=== PATIENT | male | born 1950 | race Caucasian/White ===

== ENCOUNTER 2018-03-29 11:29 | Inpatient (IN) | payer MEDICARE, OTHER ==
[~2018-03-29] VITALS: Ht 177.8 cm; Wt 81.6 kg
[~2018-03-29 11:29] MED LIST: ACHD5005 PO; ASP325T PO; CEFU250T11 PO; CEPH500C PO; CLIN-62 PO; HYDR-3720 PO; NAPR220C11 PO
--- OUTSIDE RECORDS SUMMARY | 2018-03-29 11:35 | XMS REPORT | Continuity of Care Document ---
Author Author [facility] of [facility] of [facility] Address Unknown Phone Unavailable Allergies Active Description Code Type Severity Reaction Onset Reported/Identified Relationship to Patient Clinical Status Yes No Known Drug Allergies [id number] Drug Allergy Unknown N/A 11/18/2011 Yes codeine Drug Allergy N/A N/A 01/29/2014 Medications There is no data. Problems Date Dx Coded Attending Type Code Diagnosis Diagnosed By 11/25/2011 Ot V58.32 01/29/2014 FARSHAD MONACO MD 682.1 CELLULITIS AND ABSCESS OF NECK 02/01/2014 DANICA DALE, JODI Jones Ot 038.9 02/01/2014 DANICA DALE, JODI Jones Ot 305.00 02/01/2014 DANICA DALE, JODI Jones Ot 478.29 02/01/2014 DANICA DALE, JODI Jones Ot 527.3 02/01/2014 DANICA DALE, JODI Jones Ot 787.20 02/01/2014 DANICA DALE, JODI Karen Ot 995.91 02/27/2014 LOWE DDS, SHAHRZAD Ot 527.2 03/19/2014 LOWE DDS, SHAHRZAD Ot 527.2 03/19/2014 LOWE DDS, SHAHRZAD Ot V72.84 03/19/2014 LOWE DDS, SHAHRZAD Ot 527.2 03/19/2014 LOWE DDS, SHAHRZAD Ot V72.84 Procedures There is no data. Results There is no data. Encounters ACCT No. Visit Date/Time Discharge Status Pt. Type Provider Facility Loc./Unit Complaint [id number] 01/29/2014 14:01:00 01/29/2014 23:59:59 CLS Outpatient FARSHAD MONACO MD [id number] 02/27/2014 11:58:00 02/27/2014 18:30:00 DIS Outpatient SHAHRZAD BARBOSA DDS Via [facility] [id number] 02/20/2014 13:57:00 02/20/2014 23:59:59 CLS Outpatient SHAHRZAD BARBOSA DDS Via [facility] PREOP [id number] 01/29/2014 15:04:00 02/01/2014 13:50:00 DIS Inpatient DANICA DALE, JODI Jones Via [facility] SURGICAL [id number] 11/25/2011 14:16:00 Document Registration
[2018-03-29 11:55] LABS: BASOPHILS # (AUTO) 0.1 10^3/uL (0.0-0.1); BASOPHILS % (AUTO) 1 % (0-10); EOSINOPHILS # (AUTO) 0.2 10^3/uL (0.0-0.3); EOSINOPHILS % (AUTO) 2 % (0-10); HEMATOCRIT 44 % (40-54); LYMPHOCYTES # (AUTO) 1.8 X 10^3 (1.0-4.0); LYMPHOCYTES % (AUTO) 19 % (12-44); MEAN CORPUSCULAR HEMOGLOBIN 32 PG (25-34); MEAN CORPUSCULAR HGB CONC 34 G/DL (32-36); MEAN CORPUSCULAR VOLUME 93 FL (80-99); MEAN PLATELET VOLUME 10.1 FL (7.4-10.4); MONOCYTES # (AUTO) 1.2 X 10^3 (0.0-1.0); MONOCYTES % (AUTO) 13 % (0-12); NEUTROPHILS # (AUTO) 6.2 X 10^3 (1.8-7.8); NEUTROPHILS % (AUTO) 66 % (42-75); PLATELET COUNT 332 10^3/uL (130-400); RED BLOOD COUNT 4.67 10^6/uL (4.35-5.85); RED CELL DISTRIBUTION WIDTH 13.8 % (10.0-14.5); WHITE BLOOD COUNT 9.5 10^3/uL (4.3-11.0)
[2018-03-29 12:36] LABS: ALANINE AMINOTRANSFERASE 23 U/L (0-55); ALBUMIN 3.7 GM/DL (3.2-4.5); ALKALINE PHOSPHATASE 66 U/L (40-136); BILIRUBIN,TOTAL 0.5 MG/DL (0.1-1.0); BUN/CREATININE RATIO 18; CALCIUM 9.8 MG/DL (8.5-10.1); CARBON DIOXIDE 22 MMOL/L (21-32); CHLORIDE 106 MMOL/L (98-107); CREATININE SERUM 0.96 MG/DL (0.60-1.30); GFR ESTIMATED > 60; GLUCOSE 94 MG/DL (70-105); POTASSIUM 4.4 MMOL/L (3.6-5.0); SODIUM 140 MMOL/L (135-145); TOTAL PROTEIN 7.8 GM/DL (6.4-8.2)
[2018-03-29 12:57] LABS: TSH (THYROID ANALYZER) 0.93 UIU/ML (0.35-4.94)
--- NOTE | 2018-03-29 13:03 | Diagnostic Imaging Report ---
INDICATION: Altered mental status. FINDINGS: Portable chest. There is mild interstitial lung disease bilaterally more prominent in the lung bases. There are no consolidated infiltrates. The heart is not enlarged. There is definite fullness of the superior mediastinum. This may be vascular or nonvascular in nature. No definite hilar lymph nodes are seen. No pneumothorax or pleural effusion. No bony abnormalities. IMPRESSION: 1. There is considerable fullness of the mediastinum. Would consider CT scan of the chest to further evaluate. 2. Bilateral interstitial lung disease which may be acute or chronic. The heart is not large. Dictated by: Dictated on workstation # [id number]
[2018-03-29 13:08] LABS: BILIRUBIN,URINE NEGATIVE (NEGATIVE); CLARITY,URINE CLEAR; COLOR,URINE YELLOW; GLUCOSE, URINE (UA) NEGATIVE (NEGATIVE); KETONES,URINE 1+ (NEGATIVE); LEUKOCYTE ESTERASE ,URINE 1+ (NEGATIVE); NITRITE,URINE NEGATIVE (NEGATIVE); PH,URINE 5 (5-9); PROTEIN,URINE 1+ (NEGATIVE); UROBILINOGEN,URINE 1 MG/DL (NORMAL)
[2018-03-29 13:15] LABS: BACTERIA,URINE NEGATIVE /HPF; WBC,URINE RARE /HPF
[2018-03-29] MEDS ORDERED: NICOTINE 21 MG (NICODERM) PATCH TD ONE (14:30)
[2018-03-29] MEDS ORDERED: DEXAMETHASONE 10 MG/ML (DECADRON) 1 ML VIAL IV ONE (14:30)
--- NOTE | 2018-03-29 14:41 | ED General ---
General Chief Complaint: Neurological Problems Stated Complaint: WEAKNESS;AMS Nursing Triage Note: THE PT ARRIVAL BY EMS. NO DISTRESS OR VISIBLE SX OF INJURY ARE REPORTED. LOC IS NORMAL FOR THE PT WITH A HX OF DEMENTIA. Nursing Sepsis Screen: No Definite Risk Source of Information: Patient, EMS, Family Exam Limitations: Physical Impairments History of Present Illness Date Seen by Provider: Mar 29, 2018 Time Seen by Provider: 11:45 Initial Comments Patient presents by EMS with concerns about progressive weakness and frequent falls. He is also had confusion. He has been living with his frail older sister who has been caring for him for the past few weeks. She presumed that he had progressive dementia. Patient's condition has progressed to the point that sister can no longer care for him. He has not seen a doctor since he received a health screening for placement in the [facility] a year ago. He has no primary care provider. Allergies and Home Medications Allergies Coded Allergies: No Known Drug Allergies (Unverified , 11/18/11) Home Medications No Active Prescriptions or Reported Meds Patient Home Medication List Home Medication List Reviewed: Yes Review of Systems Review of Systems Constitutional: see HPI EENTM: no symptoms reported Respiratory: no symptoms reported Cardiovascular: no symptoms reported Genitourinary: no symptoms reported Musculoskeletal: see HPI, other (Right elbow pain) Skin: see HPI, other (Skin tear on right elbow) Psychiatric/Neurological: See HPI Hematologic/Lymphatic: No Symptoms Reported Immunological/Allergic: no symptoms reported Past Usvugdb-Vkloqz-Yvzfrc Hx Past Med/Social Hx: Reviewed and Corrections made Patient Social History Recent Foreign Travel: No Contact w/Someone Who Travel: No Recent Infectious Disease Expo: No Physical Abuse: No Sexual Abuse: No Mistreated: No Fear: No Past Medical History Surgeries: Yes (incision and drainage of submandibular abscess) Respiratory: No Cardiac: No Neurological: No Reproductive Disorders: No Gastrointestinal: No Musculoskeletal: No Endocrine: No HEENT: No Cancer: No Did You Recieve Any Treatments: No Psychosocial: Yes (history of alcoholism and went through rehabilitation 2017) Adverse Reaction/Blood Tranf: No Family Medical History Patient reports no known family medical history. Physical Exam Vital Signs Vital Signs - First Documented 03/29/18 03/29/18 03/29/18 11:48 15:22 15:30 Temp 96.2 Pulse 87 Resp 18 B/P (MAP) 112/83 (93) Pulse Ox 99 O2 Delivery Room Air Capillary Refill : Less Than 3 Seconds Height, Weight, BMI Height: 5'10.00" Weight: 180lbs. oz. 81.165215zn; BMI Method:Estimated General Appearance: No Apparent Distress, WD/WN HEENT: PERRL/EOMI, Normal ENT Inspection, Pharynx Normal Neck: Normal Inspection Respiratory: Lungs Clear, Normal Breath Sounds, No Accessory Muscle Use, No Respiratory Distress Cardiovascular: Regular Rate, Rhythm, No Edema, No Murmur Gastrointestinal: Non Tender, Soft Extremity: Other (abrasion and tenderness to the right elbow over the olecranon ) Neurologic/Psychiatric: Alert, No Motor/Sensory Deficits, executive account manager II-XII Norm as Tested, Other (confused with no focal motor deficits) Skin: Normal Color, Warm/Dry, Other (minor skin tear on the right elbow) Progress/Results/Core Measures Suspected Sepsis Recent Fever Within 48 Hours: No Infection Criteria Present: None New/Unexplained Altered Menta: No Sepsis Screen: No Definite Risk SIRS Temperature:96.2 Pulse: 87 Respiratory Rate: 18 Laboratory Tests 03/29/18 11:35: White Blood Count 9.5 Blood Pressure 112 /83 Mean: 93 Laboratory Tests 03/29/18 11:35: Platelet Count 332 03/29/18 12:09: Creatinine 0.96, Total Bilirubin 0.5 Results/Orders Lab Results Laboratory Tests Test 03/29/18 11:35 03/29/18 12:09 03/29/18 13:00 Range/Units White Blood Count 9.5 4.3-11.0 10^3/uL Red Blood Count 4.67 4.35-5.85 10^6/uL Hemoglobin 15.0 13.3-17.7 G/DL Hematocrit 44 40-54 % Mean Corpuscular Volume 93 80-99 FL Mean Corpuscular Hemoglobin 32 25-34 PG Mean Corpuscular Hemoglobin Concent 34 32-36 G/DL Red Cell Distribution Width 13.8 10.0-14.5 % Platelet Count 332 130-400 10^3/uL Mean Platelet Volume 10.1 7.4-10.4 FL Neutrophils (%) (Auto) 66 42-75 % Lymphocytes (%) (Auto) 19 12-44 % Monocytes (%) (Auto) 13 H 0-12 % Eosinophils (%) (Auto) 2 0-10 % Basophils (%) (Auto) 1 0-10 % Neutrophils # (Auto) 6.2 1.8-7.8 X 10^3 Lymphocytes # (Auto) 1.8 1.0-4.0 X 10^3 Monocytes # (Auto) 1.2 H 0.0-1.0 X 10^3 Eosinophils # (Auto) 0.2 0.0-0.3 10^3/uL Basophils # (Auto) 0.1 0.0-0.1 10^3/uL Sodium Level 140 135-145 MMOL/L Potassium Level 4.4 3.6-5.0 MMOL/L Chloride Level 106 98-107 MMOL/L Carbon Dioxide Level 22 21-32 MMOL/L Anion Gap 12 5-14 MMOL/L Blood Urea Nitrogen 17 7-18 MG/DL Creatinine 0.96 0.60-1.30 MG/DL Estimat Glomerular Filtration Rate > 60 BUN/Creatinine Ratio 18 Glucose Level 94 70-105 MG/DL Calcium Level 9.8 8.5-10.1 MG/DL Corrected Calcium 10.0 8.5-10.1 MG/DL Total Bilirubin 0.5 0.1-1.0 MG/DL Aspartate Amino Transf (AST/SGOT) 32 5-34 U/L Alanine Aminotransferase (ALT/SGPT) 23 0-55 U/L Alkaline Phosphatase 66 40-136 U/L Total Protein 7.8 6.4-8.2 GM/DL Albumin 3.7 3.2-4.5 GM/DL TSH [place] Testing 0.93 0.35-4.94 UIU/ML Urine Color YELLOW Urine Clarity CLEAR Urine pH 5 5-9 Urine Specific [place] 1.020 1.016-1.022 Urine Protein 1+ H NEGATIVE Urine Glucose (UA) NEGATIVE NEGATIVE Urine Ketones 1+ H NEGATIVE Urine Nitrite NEGATIVE NEGATIVE Urine Bilirubin NEGATIVE NEGATIVE Urine Urobilinogen 1 NORMAL MG/DL Urine Leukocyte Esterase 1+ H NEGATIVE Urine RBC (Auto) 3+ H NEGATIVE Urine RBC 2-5 H /HPF Urine WBC RARE /HPF Urine Squamous Epithelial Cells NONE /HPF Urine Crystals NONE /LPF Urine Bacteria NEGATIVE /HPF Urine Casts NONE /LPF Urine Mucus NEGATIVE /LPF Urine Culture Indicated NO My Orders Orders - OMAR DORMAN MD Cbc With Automated Diff (03/29/18 11:48) Comprehensive Metabolic Panel (03/29/18 11:48) Ua Culture If Indicated (03/29/18 11:48) Saline Lock/Iv-Start (03/29/18 11:48) Chest 1 View, Ap/Pa Only (03/29/18 11:48) Thyroid Analyzer (03/29/18 11:48) Ct Head Wo (03/29/18 11:52) Elbow, Right, 3 Views (03/29/18 11:52) Dexamethasone Injection (Decadron Inject (03/29/18 14:30) Nicotine Patch (Nicoderm Patch) (03/29/18 14:30) Medications Given in ED Current Medications Medications Dose Ordered Sig/Chandler Route Start Time Stop Time Status Last Admin Dose Admin Dexamethasone Sodium Phosphate 10 mg ONCE ONCE IV 03/29/18 14:30 03/29/18 14:31 DC 03/29/18 14:37 10 MG Nicotine 21 mg ONCE ONCE TD 03/29/18 14:30 03/29/18 14:31 DC 03/29/18 14:36 21 MG Vital Signs/I&O 03/29/18 03/29/18 03/29/18 03/29/18 11:48 15:22 15:30 15:45 Temp 96.2 96.2 97.2 Pulse 87 87 70 Resp 18 18 20 B/P (MAP) 112/83 (93) 112/83 (93) 125/82 (96) Pulse Ox 99 93 93 O2 Delivery Room Air Room Air Capillary Refill : Less Than 3 Seconds Blood Pressure Mean: 93 Progress Note : Progress Note Lab workup was fairly benign. CT of the head demonstrated numerous lesions and chest x-ray showed a widened mediastinum. These imaging findings suggest metastatic cancer. There was some edema noted on the CT of the head. Dexamethasone will be given to prevent worsening of edema. Patient was admitted to Dr. Perez with consultation with Dr. Miller and Dr. Whitfield. CT of the chest, abdomen, and pelvis with contrast was placed on the bridging orders. I discussed the findings with patient and his sister including my concern for neoplastic disease. Diagnostic Imaging Diagonstic Imaging: Xray Plain Films/CT/US/NM/MRI: chest Comments Chest x-ray viewed by me and report reviewed. See report below: NAME: JESSICA DONOVAN [employer] REC#: [id number] PT STATUS: REG ER : 1950 PHYSICIAN: OMAR DORMAN MD ADMIT DATE: 03/29/18/ER Draft Date of Exam:03/29/18 CHEST 1 VIEW, AP/PA ONLY INDICATION: Altered mental status. FINDINGS: Portable chest. There is mild interstitial lung disease bilaterally more prominent in the lung bases. There are no consolidated infiltrates. The heart is not enlarged. There is definite fullness of the superior mediastinum. This may be vascular or nonvascular in nature. No definite hilar lymph nodes are seen. No pneumothorax or pleural effusion. No bony abnormalities. IMPRESSION: 1. There is considerable fullness of the mediastinum. Would consider CT scan of the chest to further evaluate. 2. Bilateral interstitial lung disease which may be acute or chronic. The heart is not large. Dictated on workstation # [id number] Dict: 03/29/18 1300 Trans: 03/29/18 1302 [facility] [id number] Interpreted by: JAMAAL BOYCE MD Diagonstic Imaging: Xray Plain Films/CT/US/NM/MRI: elbow Comments Elbow x-ray viewed by me and report reviewed. See report below: NAME: JESSICA DONOVAN [facility] REC#: [id number] PT STATUS: REG ER : 1950 PHYSICIAN: OMAR DORMAN MD ADMIT DATE: 03/29/18/ER Draft Date of Exam:03/29/18 ELBOW, RIGHT, 3 VIEWS EXAMINATION: Right elbow at 1239 hours. INDICATION: Skin tear to posterior elbow. TECHNIQUE: Three views of the right elbow were obtained. COMPARISON: There are no prior studies available for comparison. FINDINGS: There is no fracture, dislocation, or acute bony abnormality evident. There is mild degenerative disease involving the elbow joint. There is also a small bony excrescence along the posterior superior aspect of the olecranon process. This is in the region of the triceps tendon insertion and most likely is a sequela of prior injury to the triceps tendon. There is soft tissue edema along the posterior aspect of the elbow joint. This could be related to mild olecranon bursitis or merely to soft tissue edema alone. There is no radiopaque foreign body identified. IMPRESSION: There is soft tissue edema along the posterior aspect of the elbow joint but there is no evidence for a radiopaque foreign body or for an acute bony abnormality. Dictated on workstation # [id number] Dict: 03/29/18 1445 Trans: 03/29/18 1453 [id number] Interpreted by: GLYNN WAGNER MD Diagonstic Imaging: CT Plain Films/CT/US/NM/MRI: head Comments CT head viewed by me and report reviewed. See report below: NAME: JESSICA DONOVAN [facility] REC#: [id number] PT STATUS: REG ER : 1950 PHYSICIAN: OMAR DORMAN MD ADMIT DATE: 03/29/18/ER Draft Date of Exam:03/29/18 CT HEAD WO PROCEDURE: CT head without contrast. TECHNIQUE: Multiple contiguous axial images were obtained through the brain without the use of intravenous contrast. INDICATION: Falls. Comparison is made with prior head CT from 01/29/2014. There are numerous circumscribed hyperdense lesions throughout bilateral cerebral and cerebellar hemispheres. There is also a mass located within the sajan. The largest lesion is in the left frontal lobe measuring 2 cm in diameter. The lesions range from a 7 mm to 20 mm. There is a moderate amount of perilesional edema present. No midline shift is seen. No hydrocephalus is identified. IMPRESSION: Innumerable rounded hyperdense lesions throughout bilateral cerebral and cerebellar hemispheres with surrounding vasogenic edema. Features are most suggestive of widespread intracranial metastatic disease. Dictated on workstation # [id number] Dict: 03/29/18 1449 Trans: 03/29/18 1453 [facility] [id number] Interpreted by: SARAH LEVIN MD Departure Communication (Admissions) Time/Spoke to Admitting Phy: 14:15 Dr. Perez Time/Spoke to Consulting Phy: 14:[address] Whitfield Impression Primary Impression: Brain lesion Additional Impressions: Cerebral edema Weakness Altered mental status Qualified Codes: R41.82 - Altered mental status, unspecified Mediastinal widening Injury of right elbow Qualified Codes: S59.901A - Unspecified injury of right elbow, initial encounter Disposition: ADMITTED INPATIENT Condition: Stable Admissions Decision to Admit Reason: Admit from ER (General) Decision to Admit/Date: Mar 29, 2018 Time/Decision to Admit Time: 14:00 Departure-Patient Inst. Referrals: NO,LOCAL PHYSICIAN (PCP/Family) Primary Care Physician Scripts No Active Prescriptions or Reported Meds OMAR DORMAN MD Mar 29, 2018 14:41
--- NOTE | 2018-03-29 14:54 | Diagnostic Imaging Report ---
EXAMINATION: Right elbow at 1239 hours. INDICATION: Skin tear to posterior elbow. TECHNIQUE: Three views of the right elbow were obtained. COMPARISON: There are no prior studies available for comparison. FINDINGS: There is no fracture, dislocation, or acute bony abnormality evident. There is mild degenerative disease involving the elbow joint. There is also a small bony excrescence along the posterior superior aspect of the olecranon process. This is in the region of the triceps tendon insertion and most likely is a sequela of prior injury to the triceps tendon. There is soft tissue edema along the posterior aspect of the elbow joint. This could be related to mild olecranon bursitis or merely to soft tissue edema alone. There is no radiopaque foreign body identified. IMPRESSION: There is soft tissue edema along the posterior aspect of the elbow joint but there is no evidence for a radiopaque foreign body or for an acute bony abnormality. Dictated by: Dictated on workstation # [id number]
--- NOTE | 2018-03-29 14:54 | Diagnostic Imaging Report ---
PROCEDURE: CT head without contrast. TECHNIQUE: Multiple contiguous axial images were obtained through the brain without the use of intravenous contrast. INDICATION: Falls. Comparison is made with prior head CT from 01/29/2014. There are numerous circumscribed hyperdense lesions throughout bilateral cerebral and cerebellar hemispheres. There is also a mass located within the sajan. The largest lesion is in the left frontal lobe measuring 2 cm in diameter. The lesions range from a 7 mm to 20 mm. There is a moderate amount of perilesional edema present. No midline shift is seen. No hydrocephalus is identified. IMPRESSION: Innumerable rounded hyperdense lesions throughout bilateral cerebral and cerebellar hemispheres with surrounding vasogenic edema. Features are most suggestive of widespread intracranial metastatic disease. Dictated by: Dictated on workstation # [id number]
--- OUTSIDE RECORDS SUMMARY | 2018-03-29 15:10 | XMS REPORT | Continuity of Care Document ---
Author Author [facility] C[facility] of [facility] of [facility] Address Unknown Phone Unavailable Allergies Active Description Code Type Severity Reaction Onset Reported/Identified Relationship to Patient Clinical Status Yes No Known Drug Allergies [id number] Drug Allergy Unknown N/A 11/18/2011 Yes codeine [...] Status Pt. Type Provider Facility Loc./Unit Complaint [id number] 01/29/2014 14:01:00 01/29/2014 23:59:59 CLS Outpatient FARSHAD MONACO MD [id number] 02/27/2014 11:58:00 02/27/2014 18:30:00 DIS Outpatient SHAHRZAD BARBOSA DDS Via [facility] [id number] 02/20/2014 13:57:00 02/20/2014 23:59:59 CLS Outpatient SHAHRZAD BARBOSA DDS Via [facility] PREOP [id number] 01/29/2014 15:04:00 02/01/2014 13:50:00 DIS Inpatient DANICA DALE, JODI Jones Via [facility] SURGICAL [id number] 11/25/2011 14:16:00 Document Registration
[2018-03-29 15:30] VITALS: BP 125/82
[2018-03-29] MEDS ORDERED: CATHETER FLUSH 10 ML SYR IV PRN ×2 (15:45→16:45)
[2018-03-29] MEDS: PANTOPRAZOLE 40 MG (PROTONIX) TAB PO SCH (16:11)
[2018-03-29] MEDS ORDERED: NS 250 ML (IVPB) BAG IV ONE (16:45)
[2018-03-29] MEDS ORDERED: IOHEXOL 350 MG/ML 100 ML (OMNIPAQUE 350) VIAL IV ONE (16:45)
[2018-03-29] MEDS ORDERED: RECEIVED CONTRAST (Hold Metformin) IV SCH (16:45)
[2018-03-29] MEDS ORDERED: FLU QUADRIvalent (5+ YOA) 2018-2019 (AFLURIA) 0.5 ML IM ONE (17:45)
--- NOTE | 2018-03-29 17:51 | Diagnostic Imaging Report ---
PROCEDURE: CT chest, abdomen, and pelvis with contrast. TECHNIQUE: Multiple contiguous axial images were obtained through the chest, abdomen, and pelvis after the administration of intravenous contrast. INDICATION: Brain lesions, altered mental status, cough. FINDINGS: Chest: There is extensive thoracic lymphadenopathy, most suggestive of widespread metastatic disease. Abnormal ovoid axillary nodes on the left measured a maximal diameter of 2.9 cm. Right paramedian prevascular anterior mediastinal kendall mass is 2.7 cm. There is a large aggregate confluent right superior paratracheal kendall mass displacing the junction of the innominate bones and SVC anteriorly without venous obstruction. At the level of the junction of the innominates, that mass measures 6.4 x 4.5 cm and deviates the contour of the adjacent right lateral tracheal wall. Its caudal extent of the mass is contiguous with right lower paratracheal mediastinal adenopathy as well as contiguous with right hilar adenopathy. The mass in aggregate at the level of the alfreda is measuring 7.8 x 4.8 cm. There is subcarinal lymphadenopathy. The largest subcarinal mass measuring 4.1 cm. There is paraesophageal adenopathy measuring 2 cm. A right superior pulmonary hilar node measures 2 cm. The left lower lobe lung mass is likely metastatic measuring 1 cm. Subpleural mass in the right lower lobe measured 8 mm. Right basilar pulmonary mass measures 19 mm. Abdomen and pelvis: There are findings of widespread multifocal hepatic metastatic disease involving left and right lobes. The largest right lobe mass is 4.3 cm. A mass in the caudate lobe is 2.8 cm. Largest left lobe mass is 2 cm. Thicker marker bilateral adrenal masses, presumptively metastatic. The larger on the right measured 4 x 2.6 cm. There is upper abdominal mesenteric lymphadenopathy. The largest bilobed lesion is 3.7 cm long axis. Pancreas itself appeared unremarkable. There is no bile duct dilatation. The unobstructed kidneys were normal. There is splenic granulomata, benign and incidental, as well as adjacent splenules noted incidentally. A mass lateral to the upper pole of the left kidney and distal to the pancreatic tail is 1.5 cm, presumed metastatic deposit. There is unruptured atherosclerotic irregular infrarenal abdominal aortic aneurysm measuring 4.5 x 4.0 cm in transverse dimensions. The aneurysm extends a cephalocaudal length of about 5 cm. It terminates prior to the aortic bifurcation and the common internal and external iliac branches are calcified but patent and nonaneurysmal. There is colonic constipation and extensive sigmoid diverticulosis without features of acute diverticulitis. The appendix is normal. Colon stool load, its tortuosity, and its diverticulation is limited in its evaluation. No identifiable colonic mass was found. Urinary bladder appeared unremarkable. There was no suspicious lytic or sclerotic bony lesion. IMPRESSION: 1. A metastatic pattern in the chest with hilar, axillary, and mediastinal lymphadenopathy. Multiple lung masses, likely metastatic. Background COPD and interstitial lung disease, chronic. No thoracic effusion or chest wall lesion evident 2. Abdomen and pelvis: Widespread metastatic disease to the liver, abdominal lymph nodes, and adrenal glands. Diverticulated and constipated colon appeared otherwise nonfocal. Unruptured atherosclerotic infrarenal abdominal aortic aneurysm. Dictated by: Dictated on workstation # [id number]
[2018-03-29] MEDS: DEXAMETHASONE 4 MG TAB (DECADRON) PO SCH ×2 (17:59→23:38)
[2018-03-29 20:03] VITALS: BP 112/70
[2018-03-29] MEDS: CATHETER FLUSH 10 ML SYR IV SCH (20:39)
[2018-03-30 00:30] VITALS: BP 116/75
[2018-03-30 04:06] VITALS: BP 127/79
[2018-03-30] MEDS: CATHETER FLUSH 10 ML SYR IV SCH ×3 (06:21→19:53)
[2018-03-30] MEDS: DEXAMETHASONE 4 MG TAB (DECADRON) PO SCH ×3 (06:21→18:14)
[2018-03-30] MEDS: PANTOPRAZOLE 40 MG (PROTONIX) TAB PO SCH (06:21)
[2018-03-30 08:00] VITALS: BP 150/68
--- NOTE | 2018-03-30 09:36 | Pulmonary Consultation ---
History of Present Illness History of Present Illness Date of Consultation 03/30/18 09:34 Date of Admission Allergies and Home Medications Allergies Coded Allergies: No Known Drug Allergies (Unverified , 11/18/11) Home Medications No Active Prescriptions or Reported Meds Past Xzchbzh-Zucaaj-Qnqjpj Hx Past Med/Social Hx: Reviewed and Corrections made Patient Social History Alcohol Use: Past History Recreational Drug Use: No Smoking Status: Current Everyday Smoker Recent Foreign Travel: No Contact w/Someone Who Travel: No Recent Infectious Disease Expo: No Physical Abuse: No Sexual Abuse: No Mistreated: No Fear: No Past Medical History Surgeries: Yes (incision and drainage of submandibular abscess) Respiratory: No Cardiac: No Neurological: No Reproductive Disorders: No Gastrointestinal: No Musculoskeletal: No Endocrine: No HEENT: No Cancer: No Did You Recieve Any Treatments: No Psychosocial: Yes (history of alcoholism and went through rehabilitation 2016) Integumentary: No Blood Disorders: No Adverse Reaction/Blood Tranf: No Family Medical History Patient reports no known family medical history. Sepsis Event Evaluation Height, Weight, BMI Height: 5'10.00" Weight: 180lbs. 0.0oz. 81.510667nc; 25.8 BMI Method:Estimated Exam Exam Vital Signs Date Time Temp Pulse Resp B/P (MAP) Pulse Ox O2 Delivery O2 Flow Rate FiO2 03/30/18 08:00 98.1 84 18 150/68 (95) 96 Room Air 03/30/18 08:00 Room Air 03/30/18 04:06 97.2 68 18 127/79 (95) 96 Room Air 03/30/18 00:30 97.8 69 18 116/75 (89) 96 Room Air 03/29/18 20:03 97.4 79 18 112/70 (84) 95 Room Air 03/29/18 20:00 Room Air 03/29/18 15:45 93 Room Air 03/29/18 15:30 97.2 70 20 125/82 (96) 93 Room Air 03/29/18 15:22 96.2 87 18 112/83 (93) 99 03/29/18 11:48 96.2 87 18 112/83 (93) I & O 03/30/18 07:00 Intake Total 1700 ml Balance 1700 ml Height & Weight Height: 5'10.00" Weight: 180lbs. 0.0oz. 81.623559uo; 25.8 BMI Method:Estimated General Appearance: No Apparent Distress, WD/WN HEENT: PERRL/EOMI, Normal ENT Inspection, Pharynx Normal Neck: Normal Inspection Respiratory: Lungs Clear, Normal Breath Sounds, No Accessory Muscle Use, No Respiratory Distress Cardiovascular: Regular Rate, Rhythm, No Edema, No Murmur Capillary Refill: Less Than 3 Seconds Extremity: Other (abrasion and tenderness to the right elbow over the olecranon ) Neurologic/Psychiatric: Alert, No Motor/Sensory Deficits, immigration case manager II-XII Norm as Tested, Other (confused with no focal motor deficits) Skin: Normal Color, Warm/Dry, Other (minor skin tear on the right elbow) Results Lab Laboratory Tests 03/29/18 11:35 03/29/18 12:09 Assessment/Plan Assessment/Plan Severe emphysema/COPD Severe mediastinal lymphadenopathy and brain lesions -I discussed with Dr. Perez and he is going to have surgery bx a supraclavicular lymph node. -He will let me know if bronchoscopy/EBUS is needed Dementia/debility JERRY RUIZ DO Mar 30, 2018 09:36
--- NOTE | 2018-03-30 09:53 | Oncology Consultation ---
Visit Information Visit Information Date of Admission Mar 29, 2018 at 14:38 Attending Physician Ayan Perez MD Admitting Physician No,Local Physician Chief Complaint confusion and general weakness. CT showed multiple brain and lung lesions Interval History Mr. Donovan is a 67 year old white man brought to ER by his sister yesterday complaining of confusion and weakness. Long history of alcoholism and COPD. His sister is not able to take care of him at home any more. Pt is confused and not able to give any history. He told me this is 1964. The president of the [employer] is [place]. However, he is able eat full meals and go to bathroom by himself. CT of head showed multiple brain lesions with surrounding edema. ER started Decadron last night. CT of chest, abd and pelvis showed multiple large masses in the lung and also multiple lesions in the liver. See CT report below for details. I consulted the patient on: 03/30/18 09:48 Time Seen by Provider: 10:07 Review of Systems Constitutional: weakness EENTM: see HPI Respiratory: short of breath Cardiovascular: no symptoms reported Gastrointestinal: constipation Psychiatric/Neurological: See HPI Health Status Allergies Coded Allergies: No Known Drug Allergies (Unverified , 11/18/11) Home Medications No Active Prescriptions or Reported Meds NVL-Hitpyf-Lfvcfl Hx Patient Social History Alcohol Use: Past History Recreational Drug Use: No Smoking Status: Current Everyday Smoker Recent Foreign Travel: No Contact w/other who traveled: No Recent Infectious Disease Expo: No Physical Abuse Screen: No Sexual Abuse: No Family Medical History Family History: Patient reports no known family medical history. Physical Exam Vital Signs Vital Signs - First Documented 03/29/18 03/29/18 03/29/18 11:48 15:22 15:30 Temp 96.2 Pulse 87 Resp 18 B/P (MAP) 112/83 (93) Pulse Ox 99 O2 Delivery Room Air Capillary Refill : Less Than 3 Seconds Height, Weight, BMI Height: 5'10.00" Weight: 180lbs. 0.0oz. 81.931586gr; 25.8 BMI Method:Estimated General Appearance: No Apparent Distress HEENT: PERRL/EOMI Neck: Non Tender, Supple Respiratory: Chest Non Tender, Lungs Clear, No Accessory Muscle Use, No Respiratory Distress Cardiovascular: Regular Rate, Rhythm, No Edema, No JVD Gastrointestinal: Non Tender, Soft Extremity: Non Tender, No Calf Tenderness, No Pedal Edema Neurologic/Psychiatric: Disoriented (confused. Not able to give history) Data Review Labs Laboratory Tests 04/01/18 05:25 Laboratory Tests 04/01/18 05:25: Blood Urea Nitrogen 20H, Glucose Level 133H Radiology CT of the Head 03-29-18 w w/o There are numerous circumscribed hyperdense lesions throughout bilateral cerebral and cerebellar hemispheres. There is also a mass located within the sajan. The largest lesion is in the left frontal lobe measuring 2 cm in diameter. The lesions range from a 7 mm to 20 mm. There is a moderate amount of perilesional edema present. No midline shift is seen. No hydrocephalus is identified. IMPRESSION: Innumerable rounded hyperdense lesions throughout bilateral cerebral and cerebellar hemispheres with surrounding vasogenic edema. Features are most suggestive of widespread intracranial metastatic disease. NAME: JESSICA DONOVAN [facility] REC#: [id number] PHYSICIAN: AYAN PEREZ MD Date of Exam: 03/29/18 CT CHEST/ABDOMEN/PELVIS W PROCEDURE: CT chest, abdomen, and pelvis with contrast. TECHNIQUE: Multiple contiguous axial images were obtained through the chest, abdomen, and pelvis after the administration of intravenous contrast. INDICATION: Brain lesions, altered mental status, cough. FINDINGS: Chest: There is extensive thoracic lymphadenopathy, most suggestive of widespread metastatic disease. Abnormal ovoid axillary nodes on the left measured a maximal diameter of 2.9 cm. Right paramedian prevascular anterior mediastinal kendall mass is 2.7 cm. There is a large aggregate confluent right superior paratracheal kendall mass displacing the junction of the innominate bones and SVC anteriorly without venous obstruction. At the level of the junction of the innominates, that mass measures 6.4 x 4.5 cm and deviates the contour of the adjacent right lateral tracheal wall. Its caudal extent of the mass is contiguous with right lower paratracheal mediastinal adenopathy as well as contiguous with right hilar adenopathy. The mass in aggregate at the level of the alfreda is measuring 7.8 x 4.8 cm. There is subcarinal lymphadenopathy. The largest subcarinal mass measuring 4.1 cm. There is paraesophageal adenopathy measuring 2 cm. A right superior pulmonary hilar node measures 2 cm. The left lower lobe lung mass is likely metastatic measuring 1 cm. Subpleural mass in the right lower lobe measured 8 mm. Right basilar pulmonary mass measures 19 mm. Abdomen and pelvis: There are findings of widespread multifocal hepatic metastatic disease involving left and right lobes. The largest right lobe mass is 4.3 cm. A mass in the caudate lobe is 2.8 cm. Largest left lobe mass is 2 cm. Thicker marker bilateral adrenal masses, presumptively metastatic. The larger on the right measured 4 x 2.6 cm. There is upper abdominal mesenteric lymphadenopathy. The largest bilobed lesion is 3.7 cm long axis. Pancreas itself appeared unremarkable. There is no bile duct dilatation. The unobstructed kidneys were normal. There is splenic granulomata, benign and incidental, as well as adjacent splenules noted incidentally. A mass lateral to the upper pole of the left kidney and distal to the pancreatic tail is 1.5 cm, presumed metastatic deposit. There is unruptured atherosclerotic irregular infrarenal abdominal aortic aneurysm measuring 4.5 x 4.0 cm in transverse dimensions. The aneurysm extends a cephalocaudal length of about 5 cm. It terminates prior to the aortic bifurcation and the common internal and external iliac branches are calcified but patent and nonaneurysmal. There is colonic constipation and extensive sigmoid diverticulosis without features of acute diverticulitis. The appendix is normal. Colon stool load, its tortuosity, and its diverticulation is limited in its evaluation. No identifiable colonic mass was found. Urinary bladder appeared unremarkable. There was no suspicious lytic or sclerotic bony lesion. IMPRESSION: 1. A metastatic pattern in the chest with hilar, axillary, and mediastinal lymphadenopathy. Multiple lung masses, likely metastatic. Background COPD and interstitial lung disease, chronic. No thoracic effusion or chest wall lesion evident 2. Abdomen and pelvis: Widespread metastatic disease to the liver, abdominal lymph nodes, and adrenal glands. Diverticulated and constipated colon appeared otherwise nonfocal. Unruptured atherosclerotic infrarenal abdominal aortic aneurysm. Dictated by: Dictated on workstation # [id number] Dict: 03/29/181709 Trans: 03/29/181751 Interpreted by: DEL LUNA Electronically signed by: DEL LUNA 03/29/181751 Impression & Plan Impression & Plan IMP: 1. Multiple brain lesions with surrounding edema, symptoms of confusion and general weakness. 2. 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 3. H/o alcoholism 4. COPD 5. His sister is not able to take care of him at home any more. Plan: 1. Tissue diagnosis. Most likely diagnosis, carcinoma of the lung origin. 2. Consult Rad/Onc Dr. Winters on Sunday 3. Continue Decadron 4mg po qid 4. Pepcid or PI while on Decadron 5. load out worker consult. KAYLEE PERALTA MD Mar 30, 2018 09:53
--- NOTE | 2018-03-30 10:13 | History & Physical-Hospitalist ---
History of Present Illness HPI/Chief Complaint Mr. Prasad is a 67-year-old white male who had been staying with his sister who brought him into the emergency room the evening of 29 March reporting she could no longer care for him. According to the emergency room physician she was quite small and frail herself and stated that he had been increasingly confused over the past 1-2 weeks had become generally weak despite a reasonable appetite and it had several falls. There have been no reported loss of consciousness or head trauma. He was pleasant upon my arrival voicing no complaints but thought he was in the [facility] and did not know why he was here. All he could tell me was that things got worse suddenly but did not elaborate. He did begin sentences and then stop in mid sentence and continue to eat. He denied any problems with headaches vision change on the reporting generalized weakness. He denied any pain and denies any focal areas of weakness or numbness. He reported no problems with bowel or bladder control although his history is somewhat suspect. He also denied night sweats chills fever or chest pain cough or hemoptysis. Date Seen 03/30/18 Time Seen by a Provider: 08:00 Attending Physician Ayan Perez MD PCP No,Local Physician Referring Physician Date of Admission Mar 29, 2018 at 14:38 Home Medications & Allergies Home Medications Reviewed patient Home Medication Reconciliation performed by pharmacy medication reconciliations account technician and/or nursing. Patients Allergies have been reviewed. Allergies Allergies Coded Allergies No Known Drug Allergies (Unverified11/18/11) Past Juodrel-Szfblt-Orznqe Hx Past Med/Social Hx: Reviewed and Corrections made Patient Social History Alcohol Use: Past History Recreational Drug Use: No Smoking Status: Current Everyday Smoker Physical Abuse Screen: No Sexual Abuse: No Recent Foreign Travel: No Contact w/other who traveled: No Recent Infectious Disease Expo: No Past Medical History Reproductive: No Did You Recieve Any Treatments: No History of Blood Disorders: No Adverse Reaction to Blood [place]: No Family History Patient reports no known family medical history. Review of Systems Constitutional: see HPI Respiratory: see HPI Gastrointestinal: other (Denies abdominal pain and bright red blood per rectum or melena.) Psychiatric/Neurological: See HPI Physical Exam Physical Exam Vital Signs Vital Signs - First Documented 03/29/18 03/29/18 03/29/18 11:48 15:22 15:30 Temp 96.2 Pulse 87 Resp 18 B/P (MAP) 112/83 (93) Pulse Ox 99 O2 Delivery Room Air Capillary Refill : Less Than 3 Seconds Height, Weight, BMI Height: 5'10.00" Weight: 180lbs. 0.0oz. 81.426964bp; 25.8 BMI Method:Estimated General Appearance: No Apparent Distress, WD/WN HEENT: PERRL/EOMI Neck: Full Range of Motion, Non Tender, Supple, Lymphadenopathy (R) (Roughly 2 cm firm but mobile node underneath the right external jugular vein just above the clavicle. No other definitive cervical adenopathy is noted.) Respiratory: Chest Non Tender, Lungs Clear, Normal Breath Sounds, No Accessory Muscle Use, No Respiratory Distress Cardiovascular: Regular Rate, Rhythm, No Edema, No Gallop, No JVD, No Murmur, Normal Peripheral Pulses Gastrointestinal: Normal Bowel Sounds, No Organomegaly, No Pulsatile Mass, Non Tender, Soft Extremity: Normal Capillary Refill, Normal Inspection, Normal Range of Motion, Non Tender, No Calf Tenderness, No Pedal Edema, Other (Firm but mobile left axillary node likely in the 3-4 cm range rather deep. There is no avulsion of skin injury over the left elbow no surrounding significant erythema or induration noted. It appears relatively clean.) Neurologic/Psychiatric: Normal Mood/Affect, director of placement II-XII Norm as Tested, Other ( Patient is alert oriented to person only he's able to move all extremities but right lower extremity reveals 4+ strength (5+ strength.) Skin: Normal Color, Warm/Dry Lymphatic: Other (See above) Results Results/Procedures Labs Laboratory Tests 03/29/18 11:35 03/29/18 12:09 Patient resulted labs reviewed. Assessment/Plan Admission Diagnosis 1. Altered mental status and right lower extremity weakness secondary to likely rather diffuse cerebral metastasis with significant mediastinal adenopathy left axillary adenopathy and right pathologic feeling lymph node under the external jugular vein. After discussion with Dr. Miller and Dr. Pink we are in agreement that the external jugular node likely be the safest way to get tissue. for discussion is in agreement as well and will be seeing the patient. In the interim we'll continue Decadron 4 mg IV every 6 with dosage management per oncology. The patient will likely require placement in a nursing care facility upon discharge. 2. History of alcohol use disorder it is unclear as to whether or not there's been any recent drinking. There is no history of any other alcohol related medical complications. 3. Tobaccoism likely contributing to number 1 tissue diagnosis pending. Admission Status: Inpatient Order (span 2 midnights) Reason for Inpatient Admission: See admission diagnosis. Assessment and Plan See admission diagnosis. Clinical Quality Measures DVT/VTE Risk/Contraindication: Risk Factor Score Per Nursin RFS Level Per Nursing on Admit: 4+=Very High AYAN PEREZ MD Mar 30, 2018 10:13
[2018-03-30 12:00] VITALS: BP 108/75
--- NOTE | 2018-03-30 12:58 | Consultation ---
History of Present Illness History of Present Illness Patient Consulted On(tommy/time) 03/30/18 12:54 Date Seen by Provider: Mar 30, 2018 Time Seen by Provider: 12:15 Reason for Visit: mental status changes and weakness of his body History of Present Illness patient admitted with mental status changes and weakness of this body, with the discovery of diffuse metastatic disease including cerebral lesions and associated edema. Concern about primary lung carcinoma with widespread metastasis being raised. I have been asked to see him for consideration of lymph node biopsy, to establish a definitive histologic diagnosis Allergies and Home Medications Allergies Coded Allergies: No Known Drug Allergies (Unverified , 11/18/11) Home Medications No Active Prescriptions or Reported Meds Patient Home Medication List Home Medication List Reviewed: Yes Past Cfsytjz-Qwltoy-Clshhz Hx Past Med/Social Hx: Reviewed and Corrections made Patient Social History Alcohol Use: Past History Recreational Drug Use: No Smoking Status: Current Everyday Smoker Recent Foreign Travel: No Contact w/Someone Who Travel: No Recent Infectious Disease Expo: No Physical Abuse: No Sexual Abuse: No Mistreated: No Fear: No Past Medical History Surgeries: Yes (incision and drainage of submandibular abscess) Respiratory: No Cardiac: No Neurological: No Reproductive Disorders: No Gastrointestinal: No Musculoskeletal: No Endocrine: No HEENT: No Cancer: No Did You Recieve Any Treatments: No Psychosocial: Yes (history of alcoholism and went through rehabilitation 2017) Integumentary: No Blood Disorders: No Adverse Reaction/Blood Tranf: No Family Medical History Patient reports no known family medical history. Review of Systems-General Constitutional: see HPI EENTM: see HPI Respiratory: cough, dyspnea on exertion Cardiovascular: no symptoms reported Gastrointestinal: no symptoms reported Genitourinary: no symptoms reported Musculoskeletal: back pain Skin: no symptoms reported Psychiatric/Neurological: See HPI Physical Exam-General Problems Physical Exam Vital Signs Vital Signs - First Documented 03/29/18 03/29/18 03/29/18 11:48 15:22 15:30 Temp 96.2 Pulse 87 Resp 18 B/P (MAP) 112/83 (93) Pulse Ox 99 O2 Delivery Room Air Capillary Refill : Less Than 3 Seconds General Appearance: other Neck: lymphadenopathy (R) Respiratory: decreased breath sounds, crackles Cardiovascular: regular rate, rhythm Gastrointestinal: non tender, soft, no organomegaly Rectal: deferred Extremities: normal inspection Neurologic/Psychiatric: facial droop, other Skin: warm/dry Comments large, mobile and nontender lymph node palpable in the left axilla. Nontender lymph node over the right jugulodigastric region. Assessment/Plan Assessment/Plan Admission Diagnosis/Plan gentleman with diffuse metastatic lesion including cerebral lesions. Primary lung carcinoma suspected. It is reasonable to perform biopsy of the left axillary lymph node to establish a definitive diagnosis. This is being scheduled for Sunday, 01 April Admission Status: Inpatient Order (span 2 midnights) Reason for Inpatient Admission: evaluation and management lasting more than 3 days Clinical Quality Measures DVT/VTE Risk/Contraindication: Risk Factor Score Per Nursin RFS Level Per Nursing on Admit: 4+=Very High BRIAN TOBAR MD Mar 30, 2018 12:58
[2018-03-30 15:40] VITALS: BP 103/72
[2018-03-30 19:35] VITALS: BP 131/75
[2018-03-31] VITALS: BP 100/64
[2018-03-31] MEDS: DEXAMETHASONE 4 MG TAB (DECADRON) PO SCH ×5 (00:15→23:38)
[2018-03-31] MEDS: PANTOPRAZOLE 40 MG (PROTONIX) TAB PO SCH (06:19)
[2018-03-31] MEDS: CATHETER FLUSH 10 ML SYR IV SCH ×3 (06:19→20:53)
--- NOTE | 2018-03-31 11:44 | Progress Note-Hospitalist ---
Subjective HPI/CC On Admission Date Seen by Provider: Mar 31, 2018 Time Seen by Provider: 09:45 Mr. Prasad is a 67-year-old white male who had been staying with his sister who brought him into the emergency room the evening of 29 March reporting she could no longer care for him. According to the emergency room physician she was quite small and frail herself and stated that he had been increasingly confused over the past 1-2 weeks had become generally weak despite a reasonable appetite and it had several falls. There have been no reported loss of consciousness or head trauma. He was pleasant upon my arrival voicing no complaints but thought he was in the [place] and did not know why he was here. All he could tell me was that things got worse suddenly but did not elaborate. He did begin sentences and then stop in mid sentence and continue to eat. He denied any problems with headaches vision change on the reporting generalized weakness. He denied any pain and denies any focal areas of weakness or numbness. He reported no problems with bowel or bladder control although his history is somewhat suspect. He also denied night sweats chills fever or chest pain cough or hemoptysis. Subjective/Events-last exam Patient noted to be awake and alert voicing no complaints. He denies headache. His level of alertness was improved he was speaking in full sentences. When asked about a neurologic change he only reported a 2 year history of left upper extremity numbness with no reported weakness or control problems. He reports that this symptom has changed little over the past 2 years and has noted that this any worse than usual today. He denies any past history of known stroke. He's had no nausea and his voice no complaints to staff. Objective Exam Vital Signs Vital Signs Date Time Temp Pulse Resp B/P (MAP) Pulse Ox O2 Delivery O2 Flow Rate FiO2 03/31/18 00:00 98.0 63 18 100/64 (76) 94 Room Air Capillary Refill : Less Than 3 Seconds General Appearance: No Apparent Distress, WD/WN Neck: Full Range of Motion, Non Tender, Supple, Lymphadenopathy (R) Respiratory: Chest Non Tender, Lungs Clear, Normal Breath Sounds, No Accessory Muscle Use, No Respiratory Distress Cardiovascular: Regular Rate, Rhythm, No Edema, No Gallop, No JVD, No Murmur, Normal Peripheral Pulses Gastrointestinal: Normal Bowel Sounds, No Organomegaly, No Pulsatile Mass, Non Tender, Soft Neurologic/Psychiatric: Alert (Oriented 2 and improvement.), Normal Mood/ Affect, cancer program consultant II-XII Norm as Tested, Motor Weakness (Generalized no focal differences today other than slightly more weakness on plantar flexion on the right) Skin: Normal Color, Warm/Dry Results/Procedures Lab Patient resulted labs reviewed. Assessment/Plan Assessment and Plan Assess & Plan/Chief Complaint 1. Altered mental status and right lower extremity weakness secondary to likely rather diffuse cerebral metastasis with significant mediastinal adenopathy left axillary adenopathy and right pathologic feeling lymph node under the external jugular vein. After discussion with Dr. Miller and Dr. Pink he favors taking the left axillary node and we'll plan on doing so tomorrow. Neurologic status has improved in regards to improve level of alertness and communication ability today. No history of seizures or loss of consciousness reported by the patient.. for discussion is in agreement as well and will be seeing the patient. In the interim we'll continue Decadron 4 mg IV every 6 with dosage management per oncology. The patient will likely require placement in a nursing care facility upon discharge. 2. History of alcohol use disorder it is unclear as to whether or not there's been any recent drinking. There is no history of any other alcohol related medical complications. 3. Tobaccoism likely contributing to number 1 tissue diagnosis pending. 4. Deconditioning secondary to number 1 we will obtain PT consultation in the morning. Clinical Quality Measures DVT/VTE Risk/Contraindication: Risk Factor Score Per Nursin RFS Level Per Nursing on Admit: 4+=Very High AYAN CUI MD Mar 31, 2018 11:44
--- NOTE | 2018-03-31 12:50 | Progress Note (SOAP) ---
Subjective Date Seen by a Provider: Mar 31, 2018 Time Seen by a Provider: 12:47 Subjective/Events-last exam Mental status improved. Able to interact and answer questions appropriately. On IV steroids Review of Systems General: No Chills, No Night Sweats, No Fatigue, No Malaise HEENT: No Head Aches, No Eye Pain, No Ear Pain, No Dysphasia, No Sinus Congestion, No Post Nasal Drip, No Sore Throat Pulmonary: Cough Cardiovascular: No: Chest Pain, Palpitations, Orthopnea, Paroxysmal Noc. Dyspnea, Edema, Lt Headedness Gastrointestinal: No: Nausea, Vomiting, Abdominal Pain, Diarrhea, Constipation , Melena, Hematochezia Genitourinary: No Dysuria, No Frequency, No Incontinence, No Hematuria, No Retention Musculoskeletal: No: other, neck pain, shoulder pain, arm pain, back pain, hand pain, leg pain, foot pain Neurological: Weakness Objective Exam Vital Signs Date Time Temp Pulse Resp B/P (MAP) Pulse Ox O2 Delivery O2 Flow Rate FiO2 03/31/18 08:00 Room Air 03/31/18 00:00 98.0 63 18 100/64 (76) 94 Room Air 03/30/18 20:00 Room Air 03/30/18 19:35 97.5 70 16 131/75 (93) 97 Room Air 03/30/18 15:40 97.5 71 16 103/72 (82) 96 Room Air I & O 03/31/18 07:00 Intake Total 2802 ml Balance 2802 ml Capillary Refill : Less Than 3 Seconds General Appearance: No Apparent Distress Neck: Normal Inspection Respiratory: Decreased Breath Sounds Cardiovascular: Regular Rate, Rhythm Gastrointestinal: non tender, soft Extremity: Normal Inspection Neurologic/Psychiatric: Alert Skin: Warm/Dry Other comments Palpable lymph nodes over the left axilla and right jugulo-digastric area. Assessment/Plan Assessment/Plan Assess & Plan/Chief Complaint gentleman with diffuse metastatic lesion including cerebral lesions. Primary lung carcinoma suspected. It is reasonable to perform biopsy of the left axillary lymph node to establish a definitive diagnosis. This is being scheduled for Sunday, 01 April. Generalized lymphadenopathy with cerebral metastases. For left axillary lymph node biopsy tomorrow Final Diagnosis Generalized lymphadenopathy with cerebral metastasis Clinical Quality Measures DVT/VTE Risk/Contraindication: Risk Factor Score Per Nursin RFS Level Per Nursing on Admit: 4+=Very High BRIAN TOBAR MD Mar 31, 2018 12:50
[2018-03-31 16:39] VITALS: BP 98/64
[2018-03-31 20:27] VITALS: BP 106/63
[2018-04-01 00:33] VITALS: BP 114/74
[2018-04-01 04:05] VITALS: BP 124/69
[2018-04-01] MEDS: DEXAMETHASONE 4 MG TAB (DECADRON) PO SCH ×3 (06:10→17:35)
[2018-04-01] MEDS: CATHETER FLUSH 10 ML SYR IV SCH ×3 (06:10→22:08)
[2018-04-01] MEDS: PANTOPRAZOLE 40 MG (PROTONIX) TAB PO SCH (06:10)
[2018-04-01 06:18] LABS: BUN/CREATININE RATIO 21; CALCIUM 9.5 MG/DL (8.5-10.1); CARBON DIOXIDE 22 MMOL/L (21-32); CHLORIDE 106 MMOL/L (98-107); CREATININE SERUM 0.94 MG/DL (0.60-1.30); GFR ESTIMATED > 60; GLUCOSE 133 MG/DL (70-105); POTASSIUM 4.6 MMOL/L (3.6-5.0); SODIUM 139 MMOL/L (135-145)
[2018-04-01 08:00] VITALS: BP 132/77
--- NOTE | 2018-04-01 09:15 | Physical Therapy Evaluation ---
PT Evaluation-General Medical Diagnosis Admission Date Mar 29, 2018 at 14:38 Medical Diagnosis: Brain Lesions, AMS, Weakness, Falls Onset Date: Apr 01, 2018 Therapy Diagnosis Therapy Diagnosis: General weakness Height/Weight Height (Feet): 5 Height (Inches): 10.00 Weight (Pounds): 180 Weight (Ounces): 0.0 Precautions Precautions/Isolations: Fall Prevention, Standard Precautions Weight Bear Status Right Lower Extremity: Right Weight Bearing/Tolerated Left Lower Extremity: Left Weight Bearing/Tolerated Referral Physician: Gerber Perez MD Reason for Referral: Evaluation/Treatment Medical History Pertinent Medical History: Dementia Additional Medical History Past alcohol abuse Current History Patient brought to ER by sister who says she can no longer take care of her brother since previous fall Social History Home: Single Level Current Living Status: Other Family Entry Into Home: Stairs With Railing PT Steps Into Home: 2 PT Steps Inside Home: 0 Prior/Core FIM Prior Level of Function Therapy Code Descriptions/Definitions Functional Alvo Measure: 0=Not Assessed/NA 4=Minimal Assistance 1=Total Assistance 5=Supervision or Setup 2=Maximal Assistance 6=Modified Alvo 3=Moderate Assistance 7=Complete Alvo Therapy Quality Codes: 6 Independent with activity with or without an assistive device 5 Patient requires set up or clean up by helper. Patient completes activity by themselves 4 Supervision or touching assist (CGA). [place] provide cues , steadying assist 3 The helper provides less than half the effort to complete the activity 2 The helper provides more than half the effort to complete the activity 1 Dependent. The helper does all the effort to complete an activity 7 Patient refused to complete or attempt activity 9 The patient did not perform the activity before the current illness or injury 88 Not attempted due to Medical conditions or safety concerns Functional Abilities and Goals: Independent: Patient completed the activities by him/herself, with or without an assistive device, with no assistance from a helper. Needed Some Help: Patient needed partial assistance from another person to complete activities. Dependent: A helper completed the activities for the patient. Unknown: Not Applicable: Bed Mobility: 6 Transfers (B,C,W/C) (FIM): 6 Gait: 2 Stairs: 5 Indoor Mobility (Ambulation): Needed Some Help Stairs: Needed Some Help Prior Devices Use: None Prior Device Use: single point cane PT Evaluation-Current Subjective Pt asleep in bed when PT arrived. Pt woke to PT greeting and agreed to PT evaluation. Pain Numeric Pain Scale: 0-No Pain Location: No Pain Reported Objective Patient Orientation: Person, Confused, Mumbles Problem Solving: Fair ROM/Strength ROM Upper Extremities WNL ROM Lower Extremities WNL Strength Upper Extremities WNL Strength Lower Extremities 4/5 BLE Integumentary/Posture Bowel Incontinence: No Bladder Incontinence: No Neuromuscular (Tone, Coordination, Reflexes) Gross motor coordination intact Sensory Vision: Functional Hearing: Functional Sensation Right Lower Extremit: Impaired Sensation Left Lower Extremity: Impaired Transfers Therapy Code Descriptions/Definitions Functional Alvo Measure: 0=Not Assessed/NA 4=Minimal Assistance 1=Total Assistance 5=Supervision or Setup 2=Maximal Assistance 6=Modified Alvo 3=Moderate Assistance 7=Complete [place] Transfers (B, C, W/C) (FIM): 4 Scootin Rollin Supine to/from Sit: 5 Sit to/from Stand: 4 Gait Mode of Locomotion: Walk Anticipated Mode of Locomotion: Walk Gait (FIM): 1 Distance (FIM): 1=up to 49 ft Distance: 15' Gait Level of Assist: 4 Gait Persons Needed: 1 Gait Assistive Device: FWW Comments/Gait Description Patient has difficulty with ambulation due to R calcaneus being inverted. PT tried to asses ROM of hind foot and found that calcaneus does not move. Pt reported foot has been like this since he was 41 years old. Balance Sitting Static: Good Sitting Dynamic: Good Standing Static: Fair Standing Dynamic: Fair Assessment/Needs Pt has 4/5 BLE gross motor strength. Pt is CGA assist when standing and during ambulation. Patient is able to ambulate for 15' with a FWW but balance is impacted by inversion of R hindfoot. Pt will continue PT to maintain current level of function. Rehab Potential: Fair PT Shelter Goals Cook Manager Goals PT Cook Manager Goals Time Frame: Apr 08, 2018 Transfers (B,C,W/C) (FIM): 6 Gait (FIM): 5 Gait distance (FIM): 8=072-71 ft Distance: 50' Gait Level of Assist: 5 Gait Assistive Device: FWW PT Plan Problem List Problem List: Activity Tolerance, Functional Strength, Safety, Balance, Gait, Transfer, Bed Mobility Treatment/Plan Treatment Plan: Continue Plan of Care Treatment Plan: Bed Mobility, Education, Functional Activity Ruben, Functional Strength, Gait, Safety, Therapeutic Exercise, Transfers Treatment Duration: Apr 08, 2018 Frequency: 6 times per week Estimated Hrs Per Day: .25 hour per day Patient and/or Family Agrees t: Yes Discharge Recommendations Therapy D/C Recommendations: Custodial Placement Time/GCodes Time In: 818 Time Out: 842 Total Billed Treatment Time: 24 Total Billed Treatment 1 Visit EVModC - 24' G Codes Necessary: No DACIA JI PT Apr 01, 2018 09:15
--- NOTE | 2018-04-01 09:24 | Progress Note-Hospitalist ---
Subjective HPI/CC On Admission Date Seen by Provider: Apr 01, 2018 Time Seen by Provider: 09:28 Mr. Prasad is a 67-year-old white male who had been staying with his sister who brought him into the emergency room the evening of 29 March reporting she could no longer care for him. According to the emergency room physician she was quite small and frail herself and stated that he had been increasingly confused over the past 1-2 weeks had become generally weak despite a reasonable appetite and it had several falls. There have been no reported loss of consciousness or head trauma. He was pleasant upon my arrival voicing no complaints but thought he was in the [facility] and did not know why he was here. All he could tell me was that things got worse suddenly but did not elaborate. He did begin sentences and then stop in mid sentence and continue to eat. He denied any problems with headaches vision change on the reporting generalized weakness. He denied any pain and denies any focal areas of weakness or numbness. He reported no problems with bowel or bladder control although his history is somewhat suspect. He also denied night sweats chills fever or chest pain cough or hemoptysis. Subjective/Events-last exam Pt is confused. When asked about biopsy he is unsure where or why that is being done. Objective Exam Vital Signs Vital Signs Date Time Temp Pulse Resp B/P (MAP) Pulse Ox O2 Delivery O2 Flow Rate FiO2 04/01/18 12:00 97.1 60 16 115/78 (90) 94 Room Air Capillary Refill : Less Than 3 Seconds General Appearance: No Apparent Distress, WD/WN Respiratory: Lungs Clear, No Respiratory Distress Cardiovascular: Regular Rate, Rhythm, No Murmur Gastrointestinal: Normal Bowel Sounds, Soft Neurologic/Psychiatric: Alert, Other (Oriented to person and place) Results/Procedures Lab Laboratory Tests 04/01/18 05:25 Patient resulted labs reviewed. Assessment/Plan Assessment and Plan Assess & Plan/Chief Complaint 1. Altered mental status and right lower extremity weakness- likely due to diffuse cerebral metastasis with significant diffuse lymphadenopathy. Plan for biopsy today by Dr Pink. Palliative Care Consulted. 2. Diffuse cerebral tumors- likely metastatic disease. Imaging reveals masses in brain, lungs, mediastinum, and all throughout abdomen- Continue Decadron 3. History of alcohol use disorder- CIWA assess ordered 4. Tobaccoism likely contributing to number 1 tissue diagnosis pending. 5. Deconditioning secondary to number 1 - PT ordered Diagnosis/Problems Diagnosis/Problems (1) Cancer with unknown primary site (2) Brain lesion Status: Acute (3) Weakness Status: Acute (4) Cerebral edema Status: Acute Clinical Quality Measures DVT/VTE Risk/Contraindication: Risk Factor Score Per Nursin RFS Level Per Nursing on Admit: 4+=Very High GUZMAN CINTRON MD Apr 01, 2018 09:24
[2018-04-01] MEDS: ceFAZolin INJECTION 1,000 MG in NS (IVPB) 50 ML IV ONE ×2 (11:12→12:56)
[2018-04-01 12:00] VITALS: BP 115/78
[2018-04-01] MEDS ORDERED: MIDAZOLAM 2 MG/2 ML (VERSED) VIAL ONE (12:33)
[2018-04-01] MEDS ORDERED: fentaNYL INJECTION 100 MCG/2 ML AMP ONE (12:33)
[2018-04-01] MEDS ORDERED: BUP/EPI 0.5% 1:200,000 (SENSORCAINE) 30 ML VIAL ONE (12:35)
[2018-04-01] MEDS ORDERED: SEVOFLURANE (ULTANE) 15 ML INHAL SOLN ONE (13:08)
[2018-04-01] MEDS ORDERED: proPOfol 200 MG/20 ML (DIPRIVAN) VIAL IV ONE (13:08)
[2018-04-01] MEDS ORDERED: LIDOCAINE PF 2% 5 ML (XYLOCAINE) VIAL ONE (13:08)
--- NOTE | 2018-04-01 13:48 | Operative Report ---
Operative Report Date of Procedure/Surgery Apr 01, 2018 Surgeon (s) BRIAN TOBAR MD Palliative Care Coordinator (s): N/A Post-Operative Diagnosis same Procedure Performed excision biopsy of left axillary lymph node Description of Procedure Anesthesia Type: General Estimated blood loss (mL): Minimal Specimen(s) collected/removed L axillary node Description of the Procedure Indication for the procedure: This gentleman has been admitted with mental status changes with the findings of widespread, bilateral cerebral metastatic lesions and diffuse lymphadenopathy. To establish a definitive histologic diagnosis, performing an excision biopsy of a large, palpable left axillary lymph node was felt to be reasonable. Informed consent was obtained after reviewing the details of the procedure and complications of hematoma, wound infection etc. Description of the procedure: She was placed supine on the operative table and general anesthesia induced. A gram of Ancef was administered intravenously as prophylaxis against wound infection. Sequential compression devices were placed around his legs, to minimize the risk of venous thrombosis. Left axilla was prepared and draped in the usual sterile manner. Preemptive analgesia was established using 0.5 percent Marcaine with epinephrine. A 4 cm vertical incision was made along the skin crease inferior to the axillary hairline and a large lymph node isolated. Lymphatics were controlled using ligaclips and the lymph node was excised intact. It was sent fresh for analysis. Hemostasis was achieved using cautery and ligaclips. The area was irrigated with saline and the incision closed using 3-0 Vicryl for the subcutaneous tissue and 4-0 Vicryl for skin, in a subcuticular fashion. He tolerated the procedure well, was extubated in the operating room and taken to the recovery room in a stable condition Findings of the Procedure See op report Allergies and Home Medications Allergies Coded Allergies: No Known Drug Allergies (Unverified , 11/18/11) Home Medications No Active Prescriptions or Reported Meds Patient Home Medication List Home Medication List Reviewed: Yes Copy Copies To 1: AYAN CUI MD Copies To 2: KAYLEE PERALTA MD, XAVIER M MD Apr 01, 2018 13:48
[2018-04-01] MEDS ORDERED: fentaNYL INJECTION 100 MCG/2 ML AMP IVP PRN (14:00)
[2018-04-01] MEDS ORDERED: LACTATED RINGERS 1,000 ML IV SCH (14:00)
[2018-04-01] MEDS ORDERED: HYDROcodone/APAP 5 MG/325 MG (LORTAB) TAB PO PRN (14:00)
--- NOTE | 2018-04-01 14:39 | Anesthesia-General Post-Op ---
General Patient Condition Mental Status/LOC: Same as Preop Cardiovascular: Satisfactory Nausea/Vomiting: Absent Respiratory: Satisfactory Pain: Controlled Complications: Absent Post Op Complications Complications None Follow Up Care/Instructions Patient Instructions None needed. Anesthesia/Patient Condition Patient Condition Patient is doing well, no complaints, stable vital signs, no apparent adverse anesthesia problems. PEDRO P[place]LO [place] DO Apr 01, 2018 14:39
[2018-04-01 16:00] VITALS: BP 134/76
--- NOTE | 2018-04-01 17:02 | Oncology Progress Note ---
Subjective Time Seen by a Provider: 16:58 Subjective/Events-last exam Pt appeared less confusion today. No new complaints. Eating good meals. Pt had tissue biopsy today. I have notified Rad/Onc Dr Winters today for consultation. Data Review Labs Laboratory Tests 04/01/18 05:25 Laboratory Tests 04/01/18 05:25: Blood Urea Nitrogen 20H, Glucose Level 133H Radiology CT of the Head 03-29-18 w w/o There are numerous circumscribed hyperdense lesions throughout bilateral cerebral and cerebellar hemispheres. There is also a mass located within the sajan. The largest lesion is in the left frontal lobe measuring 2 cm in diameter. The lesions range from a 7 mm to 20 mm. There is a moderate amount of perilesional edema present. No midline shift is seen. No hydrocephalus is identified. IMPRESSION: Innumerable rounded hyperdense lesions throughout bilateral cerebral and cerebellar hemispheres with surrounding vasogenic edema. Features are most suggestive of widespread intracranial metastatic disease. NAME: JESSICA DONOVAN [facility] REC#: [id number] PHYSICIAN: AYAN CUI MD Date of Exam: 03/29/18 CT CHEST/ABDOMEN/PELVIS W PROCEDURE: CT chest, abdomen, and pelvis with contrast. TECHNIQUE: Multiple contiguous axial images were obtained through the chest, abdomen, and pelvis after the administration of intravenous contrast. INDICATION: Brain lesions, altered mental status, cough. FINDINGS: Chest: There is extensive thoracic lymphadenopathy, most suggestive of widespread metastatic disease. Abnormal ovoid axillary nodes on the left measured a maximal diameter of 2.9 cm. Right paramedian prevascular anterior mediastinal kendall mass is 2.7 cm. There is a large aggregate confluent right superior paratracheal kendall mass displacing the junction of the innominate bones and SVC anteriorly without venous obstruction. At the level of the junction of the innominates, that mass measures 6.4 x 4.5 cm and deviates the contour of the adjacent right lateral tracheal wall. Its caudal extent of the mass is contiguous with right lower paratracheal mediastinal adenopathy as well as contiguous with right hilar adenopathy. The mass in aggregate at the level of the alfreda is measuring 7.8 x 4.8 cm. There is subcarinal lymphadenopathy. The largest subcarinal mass measuring 4.1 cm. There is paraesophageal adenopathy measuring 2 cm. A right superior pulmonary hilar node measures 2 cm. The left lower lobe lung mass is likely metastatic measuring 1 cm. Subpleural mass in the right lower lobe measured 8 mm. Right basilar pulmonary mass measures 19 mm. Abdomen and pelvis: There are findings of widespread multifocal hepatic metastatic disease involving left and right lobes. The largest right lobe mass is 4.3 cm. A mass in the caudate lobe is 2.8 cm. Largest left lobe mass is 2 cm. Thicker marker bilateral adrenal masses, presumptively metastatic. The larger on the right measured 4 x 2.6 cm. There is upper abdominal mesenteric lymphadenopathy. The largest bilobed lesion is 3.7 cm long axis. Pancreas itself appeared unremarkable. There is no bile duct dilatation. The unobstructed kidneys were normal. There is splenic granulomata, benign and incidental, as well as adjacent splenules noted incidentally. A mass lateral to the upper pole of the left kidney and distal to the pancreatic tail is 1.5 cm, presumed metastatic deposit. There is unruptured atherosclerotic irregular infrarenal abdominal aortic aneurysm measuring 4.5 x 4.0 cm in transverse dimensions. The aneurysm extends a cephalocaudal length of about 5 cm. It terminates prior to the aortic bifurcation and the common internal and external iliac branches are calcified but patent and nonaneurysmal. There is colonic constipation and extensive sigmoid diverticulosis without features of acute diverticulitis. The appendix is normal. Colon stool load, its tortuosity, and its diverticulation is limited in its evaluation. No identifiable colonic mass was found. Urinary bladder appeared unremarkable. There was no suspicious lytic or sclerotic bony lesion. IMPRESSION: 1. A metastatic pattern in the chest with hilar, axillary, and mediastinal lymphadenopathy. Multiple lung masses, likely metastatic. Background COPD and interstitial lung disease, chronic. No thoracic effusion or chest wall lesion evident 2. Abdomen and pelvis: Widespread metastatic disease to the liver, abdominal lymph nodes, and adrenal glands. Diverticulated and constipated colon appeared otherwise nonfocal. Unruptured atherosclerotic infrarenal abdominal aortic aneurysm. Dictated by: Dictated on workstation # [id number] Dict: 03/29/181709 Trans: 03/29/181751 Interpreted by: DEL LUNA Electronically signed by: DEL LUNA 03/29/18 0149 Physical Exam Vital Signs Vital Signs - First Documented 11/30/18 11/30/18 11/30/18 11:48 15:22 15:30 Temp 96.2 Pulse 87 Resp 18 B/P (MAP) 112/83 (93) Pulse Ox 99 O2 Delivery Room Air Capillary Refill : Less Than 3 Seconds Height, Weight, BMI Height: 5'10.00" Weight: 180lbs. 0.0oz. 81.787378yc; 25.8 BMI Method:Estimated General Appearance: No Apparent Distress HEENT: PERRL/EOMI Neck: Non Tender, Supple Respiratory: Lungs Clear, No Accessory Muscle Use, No Respiratory Distress Cardiovascular: Regular Rate, Rhythm Gastrointestinal: Non Tender, Soft Extremity: Non Tender, No Calf Tenderness, No Pedal Edema Neurologic/Psychiatric: Disoriented Impression & Plan Impression & Plan IMP: 1. Multiple brain lesions with surrounding edema, symptoms of confusion and general weakness. 2. 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 3. H/o alcoholism 4. COPD 5. His sister is not able to take care of him at home any more. Plan: 1. F/u Tissue biopsy path report. Most likely diagnosis, carcinoma of the lung origin. 2. Consult Rad/Onc Dr. Winters was notified today. 3. Continue Decadron 4mg po qid until 2-3 days after cranial radiation then gradually taper. 4. Pepcid or PI while on Decadron 5. rack production worker consult. 6. Physical therapy Clinical Quality Measures DVT/VTE Risk/Contraindication: Risk Factor Score Per Nursin RFS Level Per Nursing on Admit: 4+=Very High KAYLEE PERALTA MD Apr 01, 2018 17:02
[2018-04-01 20:00] VITALS: BP 111/70
[2018-04-02] VITALS (7 sets, daily range): BP systolic 102–125; BP diastolic 58–81
[2018-04-02] MEDS: DEXAMETHASONE 4 MG TAB (DECADRON) PO SCH ×5 (00:11→23:00)
[2018-04-02] MEDS: PANTOPRAZOLE 40 MG (PROTONIX) TAB PO SCH (06:00)
[2018-04-02] MEDS: CATHETER FLUSH 10 ML SYR IV SCH ×3 (06:00→20:22)
--- NOTE | 2018-04-02 10:07 | Progress Note-Hospitalist ---
Subjective HPI/CC On Admission Date Seen by Provider: Apr 02, 2018 Time Seen by Provider: 10:04 Mr. Prasad is a 67-year-old white male who had been staying with his sister who brought him into the emergency room the evening of 29 March reporting she could no longer care for him. According to the emergency room physician she was quite small and frail herself and stated that he had been increasingly confused over the past 1-2 weeks had become generally weak despite a reasonable appetite and it had several falls. There have been no reported loss of consciousness or head trauma. He was pleasant upon my arrival voicing no complaints but thought he was in the [facility] and did not know why he was here. All he could tell me was that things got worse suddenly but did not elaborate. He did begin sentences and then stop in mid sentence and continue to eat. He denied any problems with headaches vision change on the reporting generalized weakness. He denied any pain and denies any focal areas of weakness or numbness. He reported no problems with bowel or bladder control although his history is somewhat suspect. He also denied night sweats chills fever or chest pain cough or hemoptysis. Subjective/Events-last exam Pt is lying in bed confused. When asked where he lives he stated "right here." He denied any other complaints. Objective Exam Vital Signs Vital Signs Date Time Temp Pulse Resp B/P (MAP) Pulse Ox O2 Delivery O2 Flow Rate FiO2 04/02/18 08:00 96.9 60 20 102/58 (73) 96 Room Air Capillary Refill : Less Than 3 Seconds General Appearance: No Apparent Distress, WD/WN Respiratory: Lungs Clear, No Respiratory Distress Cardiovascular: Regular Rate, Rhythm, No Murmur Gastrointestinal: Normal Bowel Sounds, Non Tender, Soft Neurologic/Psychiatric: Alert, Disoriented Results/Procedures Lab Patient resulted labs reviewed. Assessment/Plan Assessment and Plan Assess & Plan/Chief Complaint 1. Altered mental status and right lower extremity weakness- likely due to diffuse cerebral metastasis with significant diffuse lymphadenopathy. Underwent biopsy yesterday. Await path. Would likely benefit from palliative care 2. Diffuse cerebral tumors- likely metastatic disease. Imaging reveals masses in brain, lungs, mediastinum, and all throughout abdomen- Continue Decadron. Await path from bx yesterday 3. History of alcohol use disorder- CIWA assess ordered 4. Tobaccoism likely contributing to number 1 tissue diagnosis pending. 5. Deconditioning secondary to number 1 - PT ordered, will need correction placement Diagnosis/Problems Diagnosis/Problems (1) Cancer with unknown primary site (2) Brain lesion Status: Acute (3) Weakness Status: Acute (4) Cerebral edema Status: Acute Clinical Quality Measures DVT/VTE Risk/Contraindication: Risk Factor Score Per Nursin RFS Level Per Nursing on Admit: 4+=Very High GUZMAN CINTRON MD Apr 02, 2018 10:07
--- NOTE | 2018-04-02 10:42 | Physical Therapy Progress Note ---
Therapy Progress Note Pt refused to get up and walk with PT. PT asked if he would prefer exercises in bed but stated he did not want any PT. DACIA JI PT Apr 02, 2018 10:42
--- NOTE | 2018-04-02 13:55 | Physical Therapy Daily Note ---
PT Daily Note-Current Subjective Pt awake in bed visiting with family when PT arrived. Patient agreed to get up and walk after encouragement. Pain Numeric Pain Scale: 0-No Pain Location: No Pain Reported Mental Status Patient Orientation: Confused Transfers Therapy Code Descriptions/Definitions Functional [place] Measure: 0=Not Assessed/NA 4=Minimal Assistance 1=Total Assistance 5=Supervision or Setup 2=Maximal Assistance 6=Modified [place] 3=Moderate Assistance 7=Complete [place] Therapy Quality Codes: 6 Independent with activity with or without an assistive device 5 Patient requires set up or clean up by helper. Patient completes activity by themselves 4 Supervision or touching assist (CGA). [place] provide cues , steadying assist 3 The helper provides less than half the effort to complete the activity 2 The helper provides more than half the effort to complete the activity 1 Dependent. The helper does all the effort to complete an activity 7 Patient refused to complete or attempt activity 9 The patient did not perform the activity before the current illness or injury 88 Not attempted due to Medical conditions or safety concerns Transfers (B, C, W/C) (FIM): 4 Scootin Rollin Supine to/from Sit: 4 Sit to/from Stand: 4 Weight Bearing Right Lower Extremity: Right Weight Bearing/Tolerated Left Lower Extremity: Left Weight Bearing/Tolerated Gait Training Gait (FIM): 2 Distance (FIM): 4=080-36 ft Distance: 100' Gait Level of Assist: 4 Gait Persons Needed: 1 Gait Assistive Device: FWW Assessment Patient is able to ambulate with a FWW requiring CGA. Patient loses balance easily when turning and needs to be guarded closely by therapist. Patient does not follow direction and needs to be cued multiple times. Patient returned to bed with all four guard rails up and bed alarm turned on. PT Short Term Goals Short Term Goals Time Frame: Apr 02, 2018 PT [employer] Goals [employer] Goals PT Senior Living Goals Time Frame: Apr 08, 2018 Transfers (B,C,W/C) (FIM): 6 Gait (FIM): 5 Gait distance (FIM): 4=982-58 ft Distance: 50' Gait Level of Assist: 5 Gait Assistive Device: FWW PT Plan Problem List Problem List: Activity Tolerance, Functional Strength, Safety, Balance, Gait, Transfer, Bed Mobility, ROM Treatment/Plan Treatment Plan: Continue Plan of Care Treatment Plan: Bed Mobility, Education, Functional Activity Ruben, Functional Strength, Gait, Safety, Therapeutic Exercise, Transfers Treatment Duration: Apr 08, 2018 Frequency: 6 times per week Estimated Hrs Per Day: .25 hour per day Patient and/or Family Agrees t: Yes Time/GCodes Time In: 1308 Time Out: 1320 Total Billed Treatment Time: 12 Total Billed Treatment 1 Visit GT - 12' DACIA JI PT Apr 02, 2018 13:55
--- NOTE | 2018-04-02 15:38 | Oncology Progress Note ---
Subjective Date Seen by a Provider: Apr 02, 2018 Time Seen by a Provider: 15:29 Subjective/Events-last exam Biopsy of left submandibular node by Dr Pink showed no malignancy. Pt will need to better precise approach and CT guided biopsy for diagnosis. I have discussed with Radiologist about the bronch of medium sternum mass vs CT guided biopsy of liver and left axillary node. I felt the needle biopsy of the liver mets and left axillary node under CT was the most informative and less invasive. PT will be NPO post mid-night and CT guided biopsy tomorrow AM. Data Review Labs Laboratory Tests 04/01/18 05:25: Blood Urea Nitrogen 20H, Glucose Level 133H Radiology CT of the Head 03-29-18 w w/o There are numerous circumscribed hyperdense lesions throughout bilateral cerebral and cerebellar hemispheres. There is also a mass located within the sajan. The largest lesion is in the left frontal lobe measuring 2 cm in diameter. The lesions range from a 7 mm to 20 mm. There is a moderate amount of perilesional edema present. No midline shift is seen. No hydrocephalus is identified. IMPRESSION: Innumerable rounded hyperdense lesions throughout bilateral cerebral and cerebellar hemispheres with surrounding vasogenic edema. Features are most suggestive of widespread intracranial metastatic disease. NAME: JESSICA DONOVAN [facility] REC#: [id number] PHYSICIAN: AYAN CUI MD Date of Exam: 03/29/18 CT CHEST/ABDOMEN/PELVIS W PROCEDURE: CT chest, abdomen, and pelvis with contrast. TECHNIQUE: Multiple contiguous axial images were obtained through the chest, abdomen, and pelvis after the administration of intravenous contrast. INDICATION: Brain lesions, altered mental status, cough. FINDINGS: Chest: There is extensive thoracic lymphadenopathy, most suggestive of widespread metastatic disease. Abnormal ovoid axillary nodes on the left measured a maximal diameter of 2.9 cm. Right paramedian prevascular anterior mediastinal kendall mass is 2.7 cm. There is a large aggregate confluent right superior paratracheal kendall mass displacing the junction of the innominate bones and SVC anteriorly without venous obstruction. At the level of the junction of the innominates, that mass measures 6.4 x 4.5 cm and deviates the contour of the adjacent right lateral tracheal wall. Its caudal extent of the mass is contiguous with right lower paratracheal mediastinal adenopathy as well as contiguous with right hilar adenopathy. The mass in aggregate at the level of the alfreda is measuring 7.8 x 4.8 cm. There is subcarinal lymphadenopathy. The largest subcarinal mass measuring 4.1 cm. There is paraesophageal adenopathy measuring 2 cm. A right superior pulmonary hilar node measures 2 cm. The left lower lobe lung mass is likely metastatic measuring 1 cm. Subpleural mass in the right lower lobe measured 8 mm. Right basilar pulmonary mass measures 19 mm. Abdomen and pelvis: There are findings of widespread multifocal hepatic metastatic disease involving left and right lobes. The largest right lobe mass is 4.3 cm. A mass in the caudate lobe is 2.8 cm. Largest left lobe mass is 2 cm. Thicker marker bilateral adrenal masses, presumptively metastatic. The larger on the right measured 4 x 2.6 cm. There is upper abdominal mesenteric lymphadenopathy. The largest bilobed lesion is 3.7 cm long axis. Pancreas itself appeared unremarkable. There is no bile duct dilatation. The unobstructed kidneys were normal. There is splenic granulomata, benign and incidental, as well as adjacent splenules noted incidentally. A mass lateral to the upper pole of the left kidney and distal to the pancreatic tail is 1.5 cm, presumed metastatic deposit. There is unruptured atherosclerotic irregular infrarenal abdominal aortic aneurysm measuring 4.5 x 4.0 cm in transverse dimensions. The aneurysm extends a cephalocaudal length of about 5 cm. It terminates prior to the aortic bifurcation and the common internal and external iliac branches are calcified but patent and nonaneurysmal. There is colonic constipation and extensive sigmoid diverticulosis without features of acute diverticulitis. The appendix is normal. Colon stool load, its tortuosity, and its diverticulation is limited in its evaluation. No identifiable colonic mass was found. Urinary bladder appeared unremarkable. There was no suspicious lytic or sclerotic bony lesion. IMPRESSION: 1. A metastatic pattern in the chest with hilar, axillary, and mediastinal lymphadenopathy. Multiple lung masses, likely metastatic. Background COPD and interstitial lung disease, chronic. No thoracic effusion or chest wall lesion evident 2. Abdomen and pelvis: Widespread metastatic disease to the liver, abdominal lymph nodes, and adrenal glands. Diverticulated and constipated colon appeared otherwise nonfocal. Unruptured atherosclerotic infrarenal abdominal aortic aneurysm. Dictated by: Dictated on workstation # [id number] Dict: 03/29/181709 Trans: 03/29/181751 Interpreted by: DEL LUNA Electronically signed by: DEL LUNA 03/29/181751 Physical Exam Vital Signs Vital Signs - First Documented 03/29/18 03/29/18 03/29/18 11:48 15:22 15:30 Temp 96.2 Pulse 87 Resp 18 B/P (MAP) 112/83 (93) Pulse Ox 99 O2 Delivery Room Air Capillary Refill : Less Than 3 Seconds Height, Weight, BMI Height: 5'10.00" Weight: 180lbs. 0.0oz. 81.362360yr; 25.8 BMI Method:Estimated General Appearance: No Apparent Distress Neck: Non Tender, Supple Respiratory: No Accessory Muscle Use, No Respiratory Distress Gastrointestinal: Non Tender, Soft Extremity: Non Tender, No Calf Tenderness, No Pedal Edema Neurologic/Psychiatric: Disoriented Impression & Plan Impression & Plan IMP: 1. Multiple brain lesions with surrounding edema, symptoms of confusion and general weakness. 2. 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 3. H/o alcoholism 4. COPD 5. His sister is not able to take care of him at home any more. Plan: 1. Needle biopsy of left axillary node and liver mets under CT guidance. Most likely diagnosis, carcinoma of the lung origin. 2. Consult Rad/Onc Dr. Winters was notified. 3. Continue Decadron 4mg po qid until 2-3 days after cranial radiation then gradually taper. 4. Pepcid or PI while on Decadron 5. table worker consult. 6. Physical therapy Clinical Quality Measures DVT/VTE Risk/Contraindication: Risk Factor Score Per Nursin RFS Level Per Nursing on Admit: 4+=Very High KAYLEE PERALTA MD Apr 02, 2018 15:38
[2018-04-03 04:00] VITALS: BP 134/85
[2018-04-03] MEDS: DEXAMETHASONE 4 MG TAB (DECADRON) PO SCH ×3 (05:55→18:29)
[2018-04-03] MEDS: CATHETER FLUSH 10 ML SYR IV SCH ×3 (05:55→22:00)
[2018-04-03] MEDS: PANTOPRAZOLE 40 MG (PROTONIX) TAB PO SCH (05:56)
[2018-04-03 08:16] VITALS: BP 122/79
--- NOTE | 2018-04-03 10:17 | Physical Therapy Daily Note ---
PT Daily Note-Current Subjective Pt reports doing ok today, states he doesn't understand why they won't let him eat, even after it was explained to him. Pain Numeric Pain Scale: 0-No Pain Comment: denies pain, reports only soreness all over Appearance Upon arrival into pt's room, pt awake and supine in bed with head elevated and bed alarm activated. at end of session, pt in recliner with LE's elevated and chair alarm activated. Nurse made aware. Call light and phone within reach and bedside table in front of pt. Pt requiring re instruction on use of nurse call light and not to get up on his own. Mental Status Patient Orientation: Person, Eyes Open, Mumbles pt could not answer what states or town he is in but was able to state that he is in a hospital. Transfers Therapy Code Descriptions/Definitions Functional [place] Measure: 0=Not Assessed/NA 4=Minimal Assistance 1=Total Assistance 5=Supervision or Setup 2=Maximal Assistance 6=Modified [place] 3=Moderate Assistance 7=Complete [place] Therapy Quality Codes: 6 Independent with activity with or without an assistive device 5 Patient requires set up or clean up by helper. Patient completes activity by themselves 4 Supervision or touching assist (CGA). [place] provide cues , steadying assist 3 The helper provides less than half the effort to complete the activity 2 The helper provides more than half the effort to complete the activity 1 Dependent. The helper does all the effort to complete an activity 7 Patient refused to complete or attempt activity 9 The patient did not perform the activity before the current illness or injury 88 Not attempted due to Medical conditions or safety concerns Transfers (B, C, W/C) (FIM): 4 Scootin Rollin Supine to/from Sit: 5 Sit to/from Stand: 4 Pt with slight unsteadiness requiring CGA and requiring verb inst and demonstration for safety with hand placement during all transitions. Noted R ankle inversion with pt stating it just started like that about 40 years ago and he just lives with it Weight Bearing Right Lower Extremity: Right Weight Bearing/Tolerated Left Lower Extremity: Left Weight Bearing/Tolerated Gait Training Gait (FIM): 4 Distance (FIM): 3=150 ft Distance: 340 Gait Level of Assist: 4 Gait Persons Needed: 1 Gait Assistive Device: FWW CGA required due to unsteadiness, slight LOB x3 episodes, noted R ankle inversion during gait, shuffling, slow, antalgic, occasional unsteadiness, assist to divert walker when slightly running into objects Treatments transfer and gait training Assessment Current Status: Fair Progress slight confusion, unsteady with gait and transfers, requiring constant verb inst for safety and hand placement during transitions PT Short Term Goals Short Term Goals Time Frame: Apr 02, 2018 PT [facility] Goals Except[employer] 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 Goals PT [facility] Goals Time Frame: Apr 08, 2018 Transfers (B,C,W/C) (FIM): 6 Gait (FIM): 5 Gait distance (FIM): 4=844-39 ft Distance: 50' Gait Level of Assist: 5 Gait Assistive Device: FWW PT Plan Problem List Problem List: Activity Tolerance, Functional Strength, Safety, Balance, Gait, Transfer Treatment/Plan Treatment Plan: Continue Plan of Care Treatment Plan: Bed Mobility, Education, Functional Activity Ruben, Functional Strength, Gait, Safety, Therapeutic Exercise, Transfers Treatment Duration: Apr 08, 2018 Frequency: 6 times per week Estimated Hrs Per Day: .25 hour per day Patient and/or Family Agrees t: Yes Safety Risks/Education Patient Education: Gait Training, Transfer Techniques, Safety Issues Teaching Recipient: Patient Teaching Methods: Demonstration, Discussion Response to Teaching: Verbalize Understanding, Return Demonstration, Reinforcement Needed constant re instruction required for safety and hand placement Time/GCodes Time In: 947 Time Out: 1011 Total Billed Treatment Time: 24 Total Billed Treatment 1 visit FA 9 min GT 15 min LORENZO VALDERRAMA PTA Apr 03, 2018 10:17
--- NOTE | 2018-04-03 11:11 | Progress Note-Hospitalist ---
Subjective HPI/CC On Admission Date Seen by Provider: Apr 03, 2018 Time Seen by Provider: 11:08 Mr. Prasad is a 67-year-old white male who had been staying with his sister who brought him into the emergency room the evening of 29 March reporting she could no longer care for him. According to the emergency room physician she was quite small and frail herself and stated that he had been increasingly confused over the past 1-2 weeks had become generally weak despite a reasonable appetite and it had several falls. There have been no reported loss of consciousness or head trauma. He was pleasant upon my arrival voicing no complaints but thought he was in the [facility] and did not know why he was here. All he could tell me was that things got worse suddenly but did not elaborate. He did begin sentences and then stop in mid sentence and continue to eat. He denied any problems with headaches vision change on the reporting generalized weakness. He denied any pain and denies any focal areas of weakness or numbness. He reported no problems with bowel or bladder control although his history is somewhat suspect. He also denied night sweats chills fever or chest pain cough or hemoptysis. Subjective/Events-last exam Pt is sitting in bed and seems slightly more oriented today. No complaints. Objective Exam Vital Signs Vital Signs Date Time Temp Pulse Resp B/P (MAP) Pulse Ox O2 Delivery O2 Flow Rate FiO2 04/03/18 08:16 96.3 58 18 122/79 (93) 97 Room Air Capillary Refill : Less Than 3 Seconds General Appearance: No Apparent Distress, WD/WN Cardiovascular: Regular Rate, Rhythm, No Murmur Gastrointestinal: Normal Bowel Sounds, Soft Neurologic/Psychiatric: Alert, Disoriented Results/Procedures Lab Patient resulted labs reviewed. Assessment/Plan Assessment and Plan Assess & Plan/Chief Complaint 1. Altered mental status and right lower extremity weakness- likely due to diffuse cerebral metastasis with significant diffuse lymphadenopathy. Underwent biopsy 04/02. Would likely benefit from palliative care 2. Diffuse cerebral tumors- likely metastatic disease. Imaging reveals masses in brain, lungs, mediastinum, and all throughout abdomen- Continue Decadron. Path shows no malignancy but was poorly viable specimen. Plan for CT guided biopsy today. 3. History of alcohol use disorder- [place] assess ordered 4. Tobaccoism likely contributing to number 1 tissue diagnosis pending 5. Deconditioning secondary to number 1 - PT ordered, will need detention placement. Referrals sent yesterday Diagnosis/Problems Diagnosis/Problems (1) Cancer with unknown primary site (2) Brain lesion Status: Acute (3) Weakness Status: Acute (4) Cerebral edema Status: Acute Clinical Quality Measures DVT/VTE Risk/Contraindication: Risk Factor Score Per Nursin RFS Level Per Nursing on Admit: 4+=Very High GUZMAN CINTRON MD Apr 03, 2018 11:11
[2018-04-03 11:50] VITALS: BP 111/74
[2018-04-03] MEDS ORDERED: LIDOCAINE 1% INJ 20 ML 20 ML VIAL INJ ONE (12:00)
[2018-04-03 14:00] VITALS: BP 119/76
--- NOTE | 2018-04-03 15:30 | Progress Note (SOAP) ---
Subjective Date Seen by Provider: Apr 03, 2018 Time Seen by Provider: 09:30 Review of Systems General: No Chills, No Malaise HEENT: No Head Aches Pulmonary: Cough Cardiovascular: No: Chest Pain Gastrointestinal: No: Nausea, Vomiting Neurological: Weakness, Confusion Objective Exam Last Set of Vital Signs Vital Signs Date Time Temp Pulse Resp B/P (MAP) Pulse Ox O2 Delivery O2 Flow Rate FiO2 04/03/18 11:50 96.9 58 16 111/74 (86) 98 Room Air Capillary Refill : Less Than 3 Seconds I&O Intake and Output 04/03/18 00:00 Intake Total 3685 ml Balance 3685 ml Intake Oral 2485 ml IV Total 1200 ml # Voids 11 # Bowel Movements 3 General: Alert, Other (disoriented x 3 - uable to verbalize correct name, date , year or current president) HEENT: Atraumatic Results Lab Microbiology 03/31/18 MRSA Screen - Final, Complete MRSA not isolated Assessment/Plan Assessment/Plan Assess & Plan/Chief Complaint -patient visited -biopsy results remain pending- should be out tomorrow -final treatment decision will be based on pathology (Small cell vs Non-small cell) -have discussed case with Dr. Maddox and medical oncologist, Dr. Whitfield Clinical Quality Measures DVT/VTE Risk/Contraindication: Risk Factor Score Per Nursin RFS Level Per Nursing on Admit: 4+=Very High YODIT LOUIS MD Apr 03, 2018 15:30
[2018-04-03 16:00] VITALS: BP 119/76
[2018-04-03 20:10] VITALS: BP 124/75
[2018-04-04] VITALS (7 sets, daily range): BP systolic 117–144; BP diastolic 61–99
[2018-04-04] MEDS: DEXAMETHASONE 4 MG TAB (DECADRON) PO SCH ×5 (00:01→23:46)
[2018-04-04] MEDS: CATHETER FLUSH 10 ML SYR IV SCH ×3 (05:50→21:59)
[2018-04-04] MEDS: PANTOPRAZOLE 40 MG (PROTONIX) TAB PO SCH (06:09)
--- NOTE | 2018-04-04 10:53 | Physical Therapy Daily Note ---
PT Daily Note-Current Subjective No new c/o's. Pain Numeric Pain Scale: 0-No Pain Appearance Upon arrival, pt supine in bed with head elevated and watching TV, bed alarm on. At end of session, pt supine in bed, head elevated, bed alarm activated, call light within reach. Nsg getting pt coffee upon pt's request Mental Status Patient Orientation: Person, Confused Transfers Therapy Code Descriptions/Definitions Functional [place] Measure: 0=Not Assessed/NA 4=Minimal Assistance 1=Total Assistance 5=Supervision or Setup 2=Maximal Assistance 6=Modified [place] 3=Moderate Assistance 7=Complete [place] Therapy Quality Codes: 6 Independent with activity with or without an assistive device 5 Patient requires set up or clean up by helper. Patient completes activity by themselves 4 Supervision or touching assist (CGA). [place] provide cues , steadying assist 3 The helper provides less than half the effort to complete the activity 2 The helper provides more than half the effort to complete the activity 1 Dependent. The helper does all the effort to complete an activity 7 Patient refused to complete or attempt activity 9 The patient did not perform the activity before the current illness or injury 88 Not attempted due to Medical conditions or safety concerns Transfers (B, C, W/C) (FIM): 4 Scootin Rollin Supine to/from Sit: 5 Sit to/from Stand: 4 CGA with sit to from stand for safety, constant verb inst and encouragement for safety and hand placement during transitions Weight Bearing Right Lower Extremity: Right Weight Bearing/Tolerated Left Lower Extremity: Left Weight Bearing/Tolerated Gait Training Gait (FIM): 4 Distance (FIM): 3=150 ft Distance: 500 Gait Level of Assist: 4 Gait Persons Needed: 1 Gait Assistive Device: FWW antalgic gait, right ankle inversion causing pt to walk on lateral aspect of foot, right knee hyperextension at times, shuffling gait, poor body positioning in walker, keeps walker too far forward and to the left of his body, is able to correct but requiring almost constant verb inst x7 LOB episodes requiring min assist to correct Treatments transfer and gait training Assessment pt continues with LOB episodes during gait, requiring min assist to correct. LOB with sit to stand transfers at times. Continues with decreased safety awareness and requiring re instruction for hand placement during all transitions PT Short Term Goals Short Term Goals Time Frame: Apr 02, 2018 PT Skilled Nursing Goals Skilled Nursing Goals PT [employer] Goals Time Frame: Apr 08, 2018 Transfers (B,C,W/C) (FIM): 6 Gait (FIM): 5 Gait distance (FIM): 1=046-57 ft Distance: 50' Gait Level of Assist: 5 Gait Assistive Device: FWW PT Plan Problem List Problem List: Functional Strength, Safety, Balance, Gait, Transfer Treatment/Plan Treatment Plan: Continue Plan of Care Treatment Plan: Bed Mobility, Education, Functional Activity Ruben, Functional Strength, Gait, Safety, Therapeutic Exercise, Transfers Treatment Duration: Apr 08, 2018 Frequency: 6 times per week Estimated Hrs Per Day: .25 hour per day Patient and/or Family Agrees t: Yes Safety Risks/Education Patient Education: Gait Training, Transfer Techniques, Safety Issues Teaching Recipient: Patient Teaching Methods: Demonstration, Discussion Response to Teaching: Verbalize Understanding, Return Demonstration, Reinforcement Needed Discharge Recommendations Barriers to Progress confusion and memory Time/GCodes Time In: 1027 Time Out: 1047 Total Billed Treatment Time: 20 Total Billed Treatment 1 visit Gait x1 LORENZO VALDERRAMA PROJECT GEOLOGIST Apr 04, 2018 10:53
--- NOTE | 2018-04-04 13:21 | Progress Note-Hospitalist ---
Subjective HPI/CC On Admission Date Seen by Provider: Apr 04, 2018 Time Seen by Provider: 13:16 Mr. Prasad is a 67-year-old white male who had been staying with his sister who brought him into the emergency room the evening of 29 March reporting she could no longer care for him. According to the emergency room physician she was quite small and frail herself and stated that he had been increasingly confused over the past 1-2 weeks had become generally weak despite a reasonable appetite and it had several falls. There have been no reported loss of consciousness or head trauma. He was pleasant upon my arrival voicing no complaints but thought he was in the [facility] and did not know why he was here. All he could tell me was that things got worse suddenly but did not elaborate. He did begin sentences and then stop in mid sentence and continue to eat. He denied any problems with headaches vision change on the reporting generalized weakness. He denied any pain and denies any focal areas of weakness or numbness. He reported no problems with bowel or bladder control although his history is somewhat suspect. He also denied night sweats chills fever or chest pain cough or hemoptysis. Subjective/Events-last exam Pt has no complaints. laying in bed watching TV with family at bedside. Objective Exam Vital Signs Vital Signs Date Time Temp Pulse Resp B/P (MAP) Pulse Ox O2 Delivery O2 Flow Rate FiO2 04/04/18 12:00 98.4 66 18 130/61 (84) 96 Room Air Capillary Refill : Less Than 3 Seconds General Appearance: No Apparent Distress, WD/WN Cardiovascular: Regular Rate, Rhythm, No Murmur Gastrointestinal: Normal Bowel Sounds, Non Tender, Soft Results/Procedures Lab Patient resulted labs reviewed. Assessment/Plan Assessment and Plan Assess & Plan/Chief Complaint 1. Altered mental status and right lower extremity weakness- likely due to diffuse cerebral metastasis with significant diffuse lymphadenopathy. Underwent biopsy 04/02. Would likely benefit from palliative care 2. Diffuse cerebral tumors- likely metastatic disease. Imaging reveals masses in brain, lungs, mediastinum, and all throughout abdomen- Continue Decadron. Path shows no malignancy but was poorly viable specimen, further testing to be back today. 3. History of alcohol use disorder- [place] assess ordered 4. Tobaccoism likely contributing to number 1 tissue diagnosis pending 5. Deconditioning secondary to number 1 - PT ordered, will need fpc placement. Referrals sent and may have bed at facility in [place]. 6. DC Planning: Await bed at SNF, would likely benefit from hospice enrollment on discharge. Dr Whitfield plans to have family meeting once path back. Diagnosis/Problems Diagnosis/Problems (1) Cancer with unknown primary site (2) Brain lesion Status: Acute (3) Weakness Status: Acute (4) Cerebral edema Status: Acute Clinical Quality Measures DVT/VTE Risk/Contraindication: Risk Factor Score Per Nursin RFS Level Per Nursing on Admit: 4+=Very High GUZMAN CINTRON MD Apr 04, 2018 13:21
--- NOTE | 2018-04-04 15:55 | Oncology Progress Note ---
Subjective Date Seen by a Provider: Apr 04, 2018 Time Seen by a Provider: 15:47 Subjective/Events-last exam Pt is comfortable in bed. Still confused. Thinking he is in the hospital in [place]. He does not want to talk about his medical condition. He wants his sister to handle it. 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 They both want patient to go to custodial with hospice. Data Review Radiology CT of the Head 03-29-18 w w/o There are numerous circumscribed hyperdense lesions throughout bilateral cerebral and cerebellar hemispheres. There is also a mass located within the sajan. The largest lesion is in the left frontal lobe measuring 2 cm in diameter. The lesions range from a 7 mm to 20 mm. There is a moderate amount of perilesional edema present. No midline shift is seen. No hydrocephalus is identified. IMPRESSION: Innumerable rounded hyperdense lesions throughout bilateral cerebral and cerebellar hemispheres with surrounding vasogenic edema. Features are most suggestive of widespread intracranial metastatic disease. NAME: JESSICA DONOVAN [facility] REC#: [id number] PHYSICIAN: AYAN CUI MD Date of Exam: 03/29/18 CT CHEST/ABDOMEN/PELVIS W PROCEDURE: CT chest, abdomen, and pelvis with contrast. TECHNIQUE: Multiple contiguous axial images were obtained through the chest, abdomen, and pelvis after the administration of intravenous contrast. INDICATION: Brain lesions, altered mental status, cough. FINDINGS: Chest: There is extensive thoracic lymphadenopathy, most suggestive of widespread metastatic disease. Abnormal ovoid axillary nodes on the left measured a maximal diameter of 2.9 cm. Right paramedian prevascular anterior mediastinal kendall mass is 2.7 cm. There is a large aggregate confluent right superior paratracheal kendall mass displacing the junction of the innominate bones and SVC anteriorly without venous obstruction. At the level of the junction of the innominates, that mass measures 6.4 x 4.5 cm and deviates the contour of the adjacent right lateral tracheal wall. Its caudal extent of the mass is contiguous with right lower paratracheal mediastinal adenopathy as well as contiguous with right hilar adenopathy. The mass in aggregate at the level of the alfreda is measuring 7.8 x 4.8 cm. There is subcarinal lymphadenopathy. The largest subcarinal mass measuring 4.1 cm. There is paraesophageal adenopathy measuring 2 cm. A right superior pulmonary hilar node measures 2 cm. The left lower lobe lung mass is likely metastatic measuring 1 cm. Subpleural mass in the right lower lobe measured 8 mm. Right basilar pulmonary mass measures 19 mm. Abdomen and pelvis: There are findings of widespread multifocal hepatic metastatic disease involving left and right lobes. The largest right lobe mass is 4.3 cm. A mass in the caudate lobe is 2.8 cm. Largest left lobe mass is 2 cm. Thicker marker bilateral adrenal masses, presumptively metastatic. The larger on the right measured 4 x 2.6 cm. There is upper abdominal mesenteric lymphadenopathy. The largest bilobed lesion is 3.7 cm long axis. Pancreas itself appeared unremarkable. There is no bile duct dilatation. The unobstructed kidneys were normal. There is splenic granulomata, benign and incidental, as well as adjacent splenules noted incidentally. A mass lateral to the upper pole of the left kidney and distal to the pancreatic tail is 1.5 cm, presumed metastatic deposit. There is unruptured atherosclerotic irregular infrarenal abdominal aortic aneurysm measuring 4.5 x 4.0 cm in transverse dimensions. The aneurysm extends a cephalocaudal length of about 5 cm. It terminates prior to the aortic bifurcation and the common internal and external iliac branches are calcified but patent and nonaneurysmal. There is colonic constipation and extensive sigmoid diverticulosis without features of acute diverticulitis. The appendix is normal. Colon stool load, its tortuosity, and its diverticulation is limited in its evaluation. No identifiable colonic mass was found. Urinary bladder appeared unremarkable. There was no suspicious lytic or sclerotic bony lesion. IMPRESSION: 1. A metastatic pattern in the chest with hilar, axillary, and mediastinal lymphadenopathy. Multiple lung masses, likely metastatic. Background COPD and interstitial lung disease, chronic. No thoracic effusion or chest wall lesion evident 2. Abdomen and pelvis: Widespread metastatic disease to the liver, abdominal lymph nodes, and adrenal glands. Diverticulated and constipated colon appeared otherwise nonfocal. Unruptured atherosclerotic infrarenal abdominal aortic aneurysm. Dictated by: Dictated on workstation # [id number] Dict: 03/29/181709 Trans: 03/29/181751 Interpreted by: DEL LUNA Electronically signed by: DEL LUNA 11/30/18 1752 Physical Exam Vital Signs Vital Signs - First Documented 03/29/18 03/29/18 03/29/18 11:48 15:22 15:30 Temp 96.2 Pulse 87 Resp 18 B/P (MAP) 112/83 (93) Pulse Ox 99 O2 Delivery Room Air Capillary Refill : Less Than 3 Seconds Height, Weight, BMI Height: 5'10.00" Weight: 180lbs. 0.0oz. 81.789178fq; 25.8 BMI Method:Estimated General Appearance: No Apparent Distress HEENT: PERRL/EOMI Respiratory: Lungs Clear, No Accessory Muscle Use, No Respiratory Distress Cardiovascular: Regular Rate, Rhythm, No Edema Gastrointestinal: Non Tender, Soft Neurologic/Psychiatric: Other (confused. ) Impression & Plan Impression & Plan IMP: 1. Multiple brain lesions with surrounding edema, symptoms of confusion and general weakness. 2. Small cell lung cancer, extensive mets. Multiple lung lesions, adrenal and liver lesions. 3. H/o alcoholism 4. COPD 5. His sister is not able to take care of him at home any more. Plan: 1. Pt can be discharged to custodial in [facility] with hospice, Dr Maddox to decide the time and date. 2. NO chemoradiation treatment. 3. Continue Decadron 4mg po qid for 2 more days, then change 4mg bid till the end. 4. Pepcid or PI while on Decadron 5. Pt currently has not pain. So I would not start any pain meds yet. Clinical Quality Measures DVT/VTE Risk/Contraindication: Risk Factor Score Per Nursin RFS Level Per Nursing on Admit: 4+=Very High KAYLEE PERALTA MD Apr 04, 2018 15:55
[2018-04-05] MEDS: PANTOPRAZOLE 40 MG (PROTONIX) TAB PO SCH (06:33)
[2018-04-05] MEDS: CATHETER FLUSH 10 ML SYR IV SCH (06:33)
[2018-04-05] MEDS: DEXAMETHASONE 4 MG TAB (DECADRON) PO SCH ×2 (06:33→12:29)
[2018-04-05 08:00] VITALS: BP 134/85
--- NOTE | 2018-04-05 08:48 | Physical Therapy Daily Note ---
PT Daily Note-Current Subjective Patient sitting EOB pre tx, just got through going to the bathroom with nursing. Agrees to PT after encouragement, no complaints of pain. Appearance Patient in bed post tx with nurse call, phone, tray, all needs met, bed alarm on. Mental Status Patient Orientation: Person, Confused Transfers Therapy Code Descriptions/Definitions Functional [place] Measure: 0=Not Assessed/NA 4=Minimal Assistance 1=Total Assistance 5=Supervision or Setup 2=Maximal Assistance 6=Modified [place] 3=Moderate Assistance 7=Complete [place] Therapy Quality Codes: 6 Independent with activity with or without an assistive device 5 Patient requires set up or clean up by helper. Patient completes activity by themselves 4 Supervision or touching assist (CGA). [place] provide cues , steadying assist 3 The helper provides less than half the effort to complete the activity 2 The helper provides more than half the effort to complete the activity 1 Dependent. The helper does all the effort to complete an activity 7 Patient refused to complete or attempt activity 9 The patient did not perform the activity before the current illness or injury 88 Not attempted due to Medical conditions or safety concerns Transfers (B, C, W/C) (FIM): 4 Scootin Rollin Supine to/from Sit: 5 Sit to/from Stand: 5 Bed to/from Chair: 4 CGA for transfers Weight Bearing Right Lower Extremity: Right Weight Bearing/Tolerated Left Lower Extremity: Left Weight Bearing/Tolerated Gait Training Gait (FIM): 4 Distance: 500' Gait Level of Assist: 4 Gait Persons Needed: 1 Gait Assistive Device: FWW Patient ambulates with the walker too far forward, needs assist with balance and guiding walker. He has a right ankle deformity and ambulates on the outside of his foot and often had right knee hyperextension. Treatments bed mobility, transfers, ambulation Assessment Current Status: Poor Progress Patient is not motivated to perform therapy, needed a lot of encouragement to participate. PT Short Term Goals Short Term Goals Time Frame: Apr 02, 2018 PT Strategic Sourcing Consultant Goals Strategic Sourcing Consultant Goals PT Strategic Sourcing Consultant Goals Time Frame: Apr 08, 2018 Transfers (B,C,W/C) (FIM): 6 Gait (FIM): 5 Gait distance (FIM): 5=021-90 ft Distance: 50' Gait Level of Assist: 5 Gait Assistive Device: FWW PT Plan Problem List Problem List: Activity Tolerance, Functional Strength, Safety, Balance, Gait, Transfer, Bed Mobility, ROM Treatment/Plan Treatment Plan: Continue Plan of Care Treatment Plan: Bed Mobility, Education, Functional Activity Ruben, Functional Strength, Gait, Safety, Therapeutic Exercise, Transfers Treatment Duration: Apr 08, 2018 Frequency: 6 times per week Estimated Hrs Per Day: .25 hour per day Patient and/or Family Agrees t: Yes Safety Risks/Education Patient Education: Gait Training, Transfer Techniques, Correct Positioning, Safety Issues Teaching Recipient: Patient Teaching Methods: Demonstration, Discussion Response to Teaching: Reinforcement Needed Time/GCodes Time In: 0820 Time Out: 0835 Total Billed Treatment Time: 15 Total Billed Treatment 1 visit GT 15' NOELLE LOTT PT Apr 05, 2018 08:48
--- NOTE | 2018-04-05 09:11 | Discharge Summary-Hospitalist ---
Diagnosis/Chief Complaint Date of Admission Mar 29, 2018 at 14:38 Date of Discharge Discharge Date: Apr 05, 2018 Admission Diagnosis 1. Altered mental status and right lower extremity weakness secondary to likely rather diffuse cerebral metastasis with significant mediastinal adenopathy left axillary adenopathy and right pathologic feeling lymph node under the external jugular vein. After discussion with Dr. Miller and Dr. Pink we are in agreement that the external jugular node likely be the safest way to get tissue. for discussion is in agreement as well and will be seeing the patient. In the interim we'll continue Decadron 4 mg IV every 6 with dosage management per oncology. The patient will likely require placement in a nursing care facility upon discharge. 2. History of alcohol use disorder it is unclear as to whether or not there's been any recent drinking. There is no history of any other alcohol related medical complications. 3. Tobaccoism likely contributing to number 1 tissue diagnosis pending. Discharge Diagnosis (1) Cancer with unknown primary site (2) Brain lesion Status: Acute (3) Weakness Status: Acute (4) Cerebral edema Status: Acute Discharge Summary Discharge Physical Exam Allergies: Coded Allergies: No Known Drug Allergies (Unverified , 11/18/11) Vitals & I&Os Vital Signs Date Time Temp Pulse Resp B/P (MAP) Pulse Ox O2 Delivery O2 Flow Rate FiO2 04/04/18 23:58 97.9 101 14 144/82 (102) 94 Room Air Hospital Course Labs (last 24 hrs) Microbiology 03/31/18 MRSA Screen - Final, Complete MRSA not isolated Patient resulted labs reviewed. Discharge Home Medications: Active Scripts Active Instructions to patient/family Please see electronic discharge instructions given to patient. Clinical Quality Measures DVT/VTE Risk/Contraindication: Risk Factor Score Per Nursin RFS Level Per Nursing on Admit: 4+=Very High GUZMAN CINTRON MD Apr 05, 2018 09:11
[2018-04-05] MEDS ORDERED: DEXA4TAB66 PO (11:58)
[2018-04-05] MEDS ORDERED: PANT40TA2 PO (11:58)
== END 2018-04-05 13:45 | disposition hospice, inpatient (51) | DRG 40 ==
LOC: EDUNIT# 11:29 → ER 11:31 → 4TH 14:38
PROVIDERS: ADMIT Internal Medicine; ATTEND Family Medicine
PROC: 07B60ZX Excision of Left Axillary Lymphatic, Open Approach, Diagnostic (ICD-10-PCS; principal; 2018-04-01 12:56)
DX: C79.31 Secondary malignant neoplasm of brain (principal); G93.6 Cerebral edema; C34.81 Malignant neoplasm of overlapping sites of right bronchus and lung; C78.02 Secondary malignant neoplasm of left lung; C78.7 Secondary malignant neoplasm of liver and intrahepatic bile duct; C77.2 Secondary and unspecified malignant neoplasm of intra-abdominal lymph nodes; C79.71 Secondary malignant neoplasm of right adrenal gland; C79.72 Secondary malignant neoplasm of left adrenal gland; R41.82 Altered mental status, unspecified; J43.9 Emphysema, unspecified; S50.311A Abrasion of right elbow, initial encounter; F10.20 Alcohol dependence, uncomplicated; F03.90 Unspecified dementia, unspecified severity, without behavioral disturbance, psychotic disturbance, mood disturbance, and anxiety; R29.6 Repeated falls; Z74.2 Need for assistance at home and no other household member able to render care; F17.210 Nicotine dependence, cigarettes, uncomplicated; W19.XXXA Unspecified fall, initial encounter
CPT/HCPCS: 36415; 70450; 71045; 71260; 73080; 74177; 80048; 80053; 81000; 84443; 85025; 85027; 87081; 88184; 88185; 88305; 88341; 88342; 96374